=== PATIENT | female | born 1960 | race Caucasian/White ===

== ENCOUNTER → 2016-05-31 | Outpatient (REF) | payer BC ==
[~2016-05-31] MED LIST: ACET50TA PO; ATOR1TAB19 PO; CIPR500T89 PO; COLA50CA3 PO; DIOV320T PO; DOCU100C PO; HYDR12CA PO; IBUP600T26 PO; KETO10TAB PO; LEVA500T PO; LEVO750T PO; METF500T PO; TYLE325T5 PO; VALS160T PO; VALS320T PO; VALS80TA PO
[2016-05-31 13:48] LABS: FREE T4 1.1 NG/DL (0.76-1.46)
== END ==
LOC: M LAB REF 12:48
PROVIDERS: ATTEND Internal Medicine Nephrology
DX: E02 Subclinical iodine-deficiency hypothyroidism (principal)

== ENCOUNTER → 2016-06-28 | Outpatient (REF) | payer BC ==
[2016-06-28 13:13] LABS: ALBUMIN 4.1 GM/DL (3.2-5.2); ALBUMIN/GLOBULIN RATIO 1.46 (1.00-1.93); ALKALINE PHOSPHATASE 76 U/L (45-117); ALT/SGPT 18 U/L (12-78); ANION GAP 5 MEQ/L (8-16); AST/SGOT 10 U/L (15-37); BILIRUBIN,TOTAL 0.5 MG/DL (0.2-1.0); BLOOD UREA NITROGEN 24 MG/DL (7-18); CALCIUM LEVEL 9.2 MG/DL (8.5-10.1); CARBON DIOXIDE LEVEL 35 MEQ/L (21-32); CHLORIDE LEVEL 101 MEQ/L (98-107); CHOLESTEROL LEVEL 168 MG/DL (<200); CREATININE FOR GFR 0.82 MG/DL (0.55-1.02); FREE T4 1.05 NG/DL (0.76-1.46); GLOMERULAR FILTRATION RATE > 60.0 (>51); GLUCOSE, FASTING 103 MG/DL (70-105); POTASSIUM SERUM 3.9 MEQ/L (3.5-5.1); SODIUM LEVEL 141 MEQ/L (136-145); TOTAL PROTEIN 6.9 GM/DL (6.4-8.2); TRIGLYCERIDES LEVEL 63 MG/DL (<150)
== END ==
LOC: M LABDRAW1 11:36
PROVIDERS: ATTEND Emergency Medicine
DX: R53.83 Other fatigue (principal); E11.9 Type 2 diabetes mellitus without complications; I10 Essential (primary) hypertension; E78.2 Mixed hyperlipidemia; E55.9 Vitamin D deficiency, unspecified; Z00.00 Encounter for general adult medical examination without abnormal findings

== ENCOUNTER → 2016-12-20 | Outpatient (REF) | payer BC ==
[~2016-12-20] MED LIST changes: -DOCU100C PO; +DOCU100C16 PO; +LEVA1TAB2 PO; -LEVA500T PO; +METF500T13 PO
== END ==
LOC: M LABDRAW1 15:20
PROVIDERS: ATTEND Emergency Medicine
DX: E11.9 Type 2 diabetes mellitus without complications (principal); I10 Essential (primary) hypertension; E78.2 Mixed hyperlipidemia; E55.9 Vitamin D deficiency, unspecified; Z00.00 Encounter for general adult medical examination without abnormal findings

== ENCOUNTER → 2017-02-11 | Outpatient (CLI) | payer BC ==
--- NOTE | 2017-02-11 16:52 | REP ---
Clinical: Acute shortness of breath and productive cough. Comparison: 06/02/2015 . Technique: PA and lateral. Findings: The mediastinum and cardiac silhouette are normal. The lung barry are clear and without acute consolidation, effusion, or pneumothorax. The skeletal structures are intact and normal. Impression: 1. No acute cardiopulmonary process. Signed by Ludwig Rose MD 02/11/2017 04:42 P
== END ==
LOC: M ADAMS 16:28
PROVIDERS: ATTEND Physician Assistant
DX: R06.02 Shortness of breath (principal)

== ENCOUNTER → 2017-03-28 | Outpatient (REF) | payer BC ==
[2017-03-28 11:40] LABS: ALBUMIN 4.2 GM/DL (3.2-5.2); ALKALINE PHOSPHATASE 64 U/L (45-117); ALT/SGPT 17 U/L (12-78); ANION GAP 8 MEQ/L (8-16); AST/SGOT 10 U/L (7-37); BILIRUBIN,TOTAL 0.7 MG/DL (0.2-1.0); BLOOD UREA NITROGEN 24 MG/DL (7-18); CARBON DIOXIDE LEVEL 33 MEQ/L (21-32); CHLORIDE LEVEL 101 MEQ/L (98-107); CHOLESTEROL LEVEL 177 MG/DL (<200); CREATININE FOR GFR 0.82 MG/DL (0.55-1.02); GLOMERULAR FILTRATION RATE > 60.0 (>51); GLUCOSE, FASTING 102 MG/DL (70-105); POTASSIUM SERUM 3.9 MEQ/L (3.5-5.1); SODIUM LEVEL 142 MEQ/L (136-145); TRIGLYCERIDES LEVEL 141 MG/DL (<150)
[2017-03-28 11:58] LABS: ESTIMATED AVERAGE GLUCOSE 131 MG/DL (60-110)
== END ==
LOC: M LABDRAW1 09:58
DX: E11.9 Type 2 diabetes mellitus without complications (principal); I10 Essential (primary) hypertension; E78.2 Mixed hyperlipidemia; E55.9 Vitamin D deficiency, unspecified
CPT/HCPCS: 80053

== ENCOUNTER → 2017-08-16 | Outpatient (CLI) | payer BC | LOC: M RAD 11:35 | DX: N20.0 Calculus of kidney (principal); N18.2 Chronic kidney disease, stage 2 (mild); E11.22 Type 2 diabetes mellitus with diabetic chronic kidney disease; Z87.442 Personal history of urinary calculi | CPT/HCPCS: 76775 ==

== ENCOUNTER → 2017-10-17 | Outpatient (REF) | payer BC ==
[2017-10-17 13:31] LABS: ALBUMIN 4.2 GM/DL (3.2-5.2); ALBUMIN/GLOBULIN RATIO 1.35 (1.00-1.93); ALKALINE PHOSPHATASE 60 U/L (45-117); ALT/SGPT 21 U/L (12-78); ANION GAP 7 MEQ/L (8-16); AST/SGOT 9 U/L (7-37); BILIRUBIN,TOTAL 0.9 MG/DL (0.2-1.0); BLOOD UREA NITROGEN 21 MG/DL (7-18); CALCIUM LEVEL 9.6 MG/DL (8.5-10.1); CARBON DIOXIDE LEVEL 33 MEQ/L (21-32); CHLORIDE LEVEL 103 MEQ/L (98-107); CHOLESTEROL LEVEL 161 MG/DL (<200); CHOLESTEROL RISK RATIO 3.285 (<5); CREATININE FOR GFR 0.84 MG/DL (0.55-1.30); GLOMERULAR FILTRATION RATE > 60.0 (>51); GLUCOSE, FASTING 107 MG/DL (70-100); HDL CHOLESTEROL 49 MG/DL (>40); LDL CHOLESTEROL 82.4 MG/DL (<100); NON-HDL-C 112 MG/DL; POTASSIUM SERUM 4.6 MEQ/L (3.5-5.1); SODIUM LEVEL 143 MEQ/L (136-145); TOTAL PROTEIN 7.3 GM/DL (6.4-8.2); TRIGLYCERIDES LEVEL 148 MG/DL (<150)
[2017-10-17 13:39] LABS: TOTAL 25(OH) VITAMIN D 59.3 NG/ML (30.0-100.0)
[2017-10-17 14:16] LABS: ESTIMATED AVERAGE GLUCOSE 140 MG/DL (60-110); HEMOGLOBIN A1c 6.5 %
== END ==
LOC: M LABDRAW1 11:51
DX: E11.9 Type 2 diabetes mellitus without complications (principal); I10 Essential (primary) hypertension; E78.2 Mixed hyperlipidemia; E55.9 Vitamin D deficiency, unspecified

== ENCOUNTER → 2018-01-30 | Outpatient (REF) | payer BC ==
[2018-01-30 13:53] LABS: APPEARANCE, URINE HAZY (CLEAR); BACTERIA, URINE AUTO 1+ (NEGATIVE); BILIRUBIN, URINE AUTO NEGATIVE (NEGATIVE); BLOOD, URINE BLOOD NEGATIVE (NEGATIVE); COLOR, URINE YELLOW (YELLOW); GLUCOSE, URINE (UA) AUTO NEGATIVE (NEGATIVE); KETONE, URINE AUTO NEGATIVE (NEGATIVE); LEUKOCYTE ESTERASE, URINE AUTO 2+ (NEGATIVE); NITRITE, URINE AUTO NEGATIVE (NEGATIVE); PROTEIN, URINE AUTO NEGATIVE (NEGATIVE); RBC, URINE AUTO 0 /HPF (0-3); SQUAMOUS EPITHELIAL CELL UR AU 1 /HPF (0-6); UROBILINOGEN, URINE AUTO 0.2 mg/dL (0.0-2.0); WBC, URINE AUTO 8 /HPF (0-3)
== END ==
LOC: M SMT 13:21
DX: R10.9 Unspecified abdominal pain (principal)
CPT/HCPCS: 81001

== ENCOUNTER → 2018-02-04 | Outpatient (CLI) | payer BC | LOC: M RAD 08:21 | DX: R10.9 Unspecified abdominal pain (principal); N20.0 Calculus of kidney; N28.1 Cyst of kidney, acquired | CPT/HCPCS: 74176 ==

== ENCOUNTER → 2018-12-31 | Outpatient (REF) | payer BC ==
[~2018-12-31] MED LIST changes: -ACET50TA PO; +MAPA500T17 PO
[2018-12-31 13:10] LABS: ALT/SGPT 20 U/L (12-78); BILIRUBIN,TOTAL 0.6 MG/DL (0.2-1.0); BLOOD UREA NITROGEN 23 MG/DL (7-18); CALCIUM LEVEL 9.5 MG/DL (8.8-10.2); CARBON DIOXIDE LEVEL 33 MEQ/L (21-32); CHLORIDE LEVEL 101 MEQ/L (98-107); CREATININE FOR GFR 0.81 MG/DL (0.55-1.30); GLOMERULAR FILTRATION RATE > 60.0 (>45); GLUCOSE, FASTING 112 MG/DL (70-100); POTASSIUM SERUM 4.2 MEQ/L (3.5-5.1); SODIUM LEVEL 141 MEQ/L (136-145); TOTAL PROTEIN 7.1 GM/DL (6.4-8.2)
[2018-12-31 13:15] LABS: TOTAL 25(OH) VITAMIN D 33.5 NG/ML (30.0-100.0)
[2018-12-31 13:55] LABS: HEMOGLOBIN A1c 6.8 %
== END ==
LOC: M LABDRAW1 11:56
PROVIDERS: ATTEND Physician Assistant
DX: E11.9 Type 2 diabetes mellitus without complications (principal); E55.9 Vitamin D deficiency, unspecified

== ENCOUNTER → 2019-06-01 | Outpatient (REF) | payer BC, OTHER, SELFPAY ==
[~2019-06-01] MED LIST changes: -VALS320T PO; +VALS320T2 PO
[2019-06-01 19:44] LABS: BASO % 0.9 % (0.0-1.0); EOS # 0.1 10^3/uL (0.0-0.5); EOS % 3.2 % (0.0-3.0); HEMOGLOBIN 13.2 g/dl (12.0-15.5); LYMPH # 1.6 10^3/uL (1.5-5.0); LYMPH % 35.6 % (24.0-44.0); MEAN CORPUSCULAR HEMOGLOBIN 31.1 pg (27.0-33.0); MEAN CORPUSCULAR HGB CONC 33.8 g/dl (32.0-36.5); MEAN CORPUSCULAR VOLUME 91.8 fl (80.0-96.0); MONO # 0.3 10^3/uL (0.0-0.8); MONO % 7.3 % (0.0-5.0); NEUTROPHILS # 2.3 10^3/uL (1.5-8.5); NEUTROPHILS % 52.8 % (36.0-66.0); PLATELET COUNT, AUTOMATED 311 10^3/uL (150-450); RED BLOOD COUNT 4.25 10^6/uL (4.00-5.40); WHITE BLOOD COUNT 4.4 10^3/uL (4.0-10.0)
[2019-06-01 20:06] LABS: ALBUMIN 4.3 GM/DL (3.2-5.2); ALT/SGPT 24 U/L (12-78); BILIRUBIN,TOTAL 0.5 MG/DL (0.2-1.0); BLOOD UREA NITROGEN 19 MG/DL (7-18); CALCIUM LEVEL 9.6 MG/DL (8.8-10.2); CARBON DIOXIDE LEVEL 34 MEQ/L (21-32); CHLORIDE LEVEL 104 MEQ/L (98-107); CREATININE FOR GFR 0.72 MG/DL (0.55-1.30); GLOMERULAR FILTRATION RATE > 60.0 (>45); GLUCOSE, FASTING 131 MG/DL (70-100); POTASSIUM SERUM 3.7 MEQ/L (3.5-5.1); SODIUM LEVEL 142 MEQ/L (136-145); TOTAL PROTEIN 7.3 GM/DL (6.4-8.2)
[2019-06-01 20:18] LABS: HEMOGLOBIN A1c 6.9 %
== END ==
LOC: M LAB REF 18:08
PROVIDERS: ATTEND Physician Assistant
DX: I10 Essential (primary) hypertension (principal); E78.00 Pure hypercholesterolemia, unspecified; E11.9 Type 2 diabetes mellitus without complications; R53.83 Other fatigue; Z87.442 Personal history of urinary calculi

== ENCOUNTER → 2019-11-25 | Outpatient (REF) | payer OTHER ==
[2019-11-25 11:04] LABS: BASO # 0.1 10^3/uL (0.0-0.2); BASO % 1.2 % (0.0-1.0); EOS # 0.2 10^3/uL (0.0-0.5); HEMATOCRIT 40.1 % (36.0-47.0); HEMOGLOBIN 13.3 g/dl (12.0-15.5); LYMPH # 1.5 10^3/uL (1.5-5.0); LYMPH % 33.9 % (24.0-44.0); MEAN CORPUSCULAR HEMOGLOBIN 30.7 pg (27.0-33.0); MEAN CORPUSCULAR HGB CONC 33.2 g/dl (32.0-36.5); MEAN CORPUSCULAR VOLUME 92.6 fl (80.0-96.0); MONO # 0.3 10^3/uL (0.0-0.8); MONO % 6.3 % (0.0-5.0); NEUTROPHILS # 2.3 10^3/uL (1.5-8.5); NEUTROPHILS % 54.4 % (36.0-66.0); PLATELET COUNT, AUTOMATED 284 10^3/uL (150-450); RED BLOOD COUNT 4.33 10^6/uL (4.00-5.40); WHITE BLOOD COUNT 4.3 10^3/uL (4.0-10.0)
[2019-11-25 11:12] LABS: ALT/SGPT 16 U/L (12-78); BILIRUBIN,TOTAL 0.6 MG/DL (0.2-1.0); BLOOD UREA NITROGEN 19 MG/DL (7-18); CALCIUM LEVEL 9.3 MG/DL (8.8-10.2); CARBON DIOXIDE LEVEL 34 MEQ/L (21-32); CHLORIDE LEVEL 104 MEQ/L (98-107); CHOLESTEROL LEVEL 204 MG/DL (<200); CHOLESTEROL RISK RATIO 3.849 (<5); CREATININE FOR GFR 0.79 MG/DL (0.55-1.30); GLOMERULAR FILTRATION RATE > 60.0 (>45); GLUCOSE, FASTING 133 MG/DL (70-100); HDL CHOLESTEROL 53 MG/DL (>40); LDL CHOLESTEROL 124 MG/DL (<100); NON-HDL-C 151 MG/DL; POTASSIUM SERUM 4.3 MEQ/L (3.5-5.1); SODIUM LEVEL 141 MEQ/L (136-145); TOTAL PROTEIN 6.9 GM/DL (6.4-8.2); TRIGLYCERIDES LEVEL 134 MG/DL (<150)
[2019-11-25 13:07] LABS: HEMOGLOBIN A1c 6.3 %
== END ==
LOC: M LAB REF 07:55
PROVIDERS: ATTEND Nurse Practitioner Family
DX: Z87.442 Personal history of urinary calculi (principal); I10 Essential (primary) hypertension; E78.00 Pure hypercholesterolemia, unspecified; E11.9 Type 2 diabetes mellitus without complications; Z00.01 Encounter for general adult medical examination with abnormal findings; R53.83 Other fatigue

== ENCOUNTER → 2020-03-22 | Outpatient (REF) | payer OTHER ==
[2020-03-22 12:03] LABS: BASO # 0.1 10^3/uL (0.0-0.2); BASO % 1.3 % (0.0-1.0); EOS # 0.1 10^3/uL (0.0-0.5); EOS % 2.8 % (0.0-3.0); HEMATOCRIT 38.7 % (36.0-47.0); HEMOGLOBIN 12.4 g/dl (12.0-15.5); LYMPH # 1.6 10^3/uL (1.5-5.0); LYMPH % 39.6 % (24.0-44.0); MEAN CORPUSCULAR HEMOGLOBIN 29.1 pg (27.0-33.0); MEAN CORPUSCULAR VOLUME 90.8 fl (80.0-96.0); MONO # 0.3 10^3/uL (0.0-0.8); MONO % 7.3 % (0.0-5.0); NEUTROPHILS % 48.7 % (36.0-66.0); PLATELET COUNT, AUTOMATED 307 10^3/uL (150-450); RED BLOOD COUNT 4.26 10^6/uL (4.00-5.40)
[2020-03-22 12:30] LABS: ALBUMIN 4.2 GM/DL (3.2-5.2); ALT/SGPT 19 U/L (12-78); BILIRUBIN,TOTAL 0.6 MG/DL (0.2-1.0); BLOOD UREA NITROGEN 25 MG/DL (7-18); CALCIUM LEVEL 9.6 MG/DL (8.8-10.2); CARBON DIOXIDE LEVEL 34 MEQ/L (21-32); CHLORIDE LEVEL 104 MEQ/L (98-107); CHOLESTEROL LEVEL 180 MG/DL (<200); CHOLESTEROL RISK RATIO 3.157 (<5); CREATININE FOR GFR 0.86 MG/DL (0.55-1.30); GLOMERULAR FILTRATION RATE > 60.0 (>45); GLUCOSE, FASTING 121 MG/DL (70-100); HDL CHOLESTEROL 57 MG/DL (>40); LDL CHOLESTEROL 106 MG/DL (<100); NON-HDL-C 123 MG/DL; POTASSIUM SERUM 4.8 MEQ/L (3.5-5.1); SODIUM LEVEL 140 MEQ/L (136-145); TOTAL PROTEIN 7.1 GM/DL (6.4-8.2); TRIGLYCERIDES LEVEL 83 MG/DL (<150)
[2020-03-22 15:39] LABS: HEMOGLOBIN A1c 6.6 %
== END ==
LOC: M LAB REF 11:15
PROVIDERS: ATTEND Physician Assistant
DX: I10 Essential (primary) hypertension (principal); E78.00 Pure hypercholesterolemia, unspecified; E11.9 Type 2 diabetes mellitus without complications; R53.83 Other fatigue; Z87.442 Personal history of urinary calculi

== ENCOUNTER 2020-04-13 12:17 | Emergency (ER) | payer OTHER ==
[~2020-04-13] VITALS: Ht 152.4 cm; Wt 55.2 kg
--- OUTSIDE RECORDS SUMMARY | 2020-04-13 12:23 | CCD ---
Author Organization Unknown Address [address] [place] [address] Phone [phone] Care Team Providers Care Crossbar Frame Wirer Name Role Phone Mera Sharif Unavailable Unavailable Allergies Code Code System Name Reaction Severity Status Onset 2670 RxNorm Codeine Active 06/01/2019 Rocephin Active 06/01/2019 Medications Name Status Start Date Stop Date atorvastatin 10 mg tablet Active Not av ailable chlorthalidone 25 mg tablet TK 1/ T PO D IN THE MORNING Active Not availa ble famotidine 40 mg tablet Take 1 tablet every day by oral route. Active Not available metformin 500 mg tablet Active Not avai lable potassium chloride ER 10 mEq tablet,extended release Active Not available potassium chloride ER 10 mEq tablet,exte nded release(part/cryst) TK 1 T PO QD Completed 04/07/2020 simvastatin 10 mg tablet Completed 021 simvastatin 20 mg tablet Active Not wallace ilable telmisartan 80 mg tablet Active Not wallace ilable Problems Name Status Onset Date Source Type 2 Diabetes Mellitus without Complication Active History Tj Type IIa Hyperlipoproteinemia Active 2019 History Hypertensive Disorder Active 06/01/2019 History General Examination of Patient Unknown 06/01/2019 H istory Body Measurement Finding Unknown 06/01/2019 History Finding of General Energy Active 06/01/2019 Histor y Procedures Notes: uterine ablasion, kidney stone re moval, tubal ligation Results Lab Results Date Name Specimen Result Interpretation Description Value Range Status Address 03/28/2020 SARS CoV 2 RdRp Gene, QL Probe, Respiratory Spec imen Nasopharyngeal Normal Sars-cov-2 negative negative Final [facility]: [address] [facility] Past Encounters 04/07/2020 Hyperlipidemia; Epigastric Pain; Hypertensive Disorder; Type 2 Diabetes Mellitus without Complication; Mental Health Screening Assessment Bethany Pérez PA-C: [address] [facility], [address], [place] [address], Ph. 03/28/2020 Exposure to SARS-CoV-2 Bethany Pérez PA-C: [address] [place] [address], Ph. Social History Tobacco Smoking Status Never Smoker Vaccine List None recorded. Plan of Care Reminders Provider Appointments None recorded. Lab None recorded. Referral None recorded. Procedures None recorded. Surgeries None recorded. Imaging None recorded. Vitals 04/07/2020 10:50AM [facility] 20 Height 59 in 06/01/2019 Height Weight Blood Pressure 59 in 120 lbs 8 oz 116/76 mm[Hg]
--- OUTSIDE RECORDS SUMMARY | 2020-04-13 12:23 | CCD ---
Author Organization Unknown Address [address] [place] [address] Phone [phone] Care Team Providers Care Junior Sales Representative Name Role Phone Mera Sharif Unavailable Unavailable Allergies Code Code System Name Reaction Severity Status Onset 267 RxNorm Codeine Active 06/01/2019 Rocephin Active 06/01/2019 Medications Name Status Start Date Stop Date atorvastatin 10 mg tablet Active Not av ailable chlorthalidone 25 mg tablet TK 1/2 T PO D IN THE MORNING Active Not availa ble metformin 500 mg tablet Active Not avai lable potassium chloride ER 10 mEq tablet,extended release Active Not available potassium chloride ER 10 mEq tablet,exte nded release(part/cryst) TK 1 T PO QD Active Not available simvastatin 10 mg tablet Active Not wallace ilable simvastatin 20 mg tablet Active Not wallace ilable telmisartan 80 mg tablet Active Not wallace ilable Problems Name Status Onset Date Source Tj Type IIa Hyperlipoproteinemia Active 2019 History Hypertensive Disorder Active 06/01/2019 History Body Measurement Finding Active 06/01/2019 History Finding of General Energy Active 06/01/2019 Histor y Procedure by Method Active 06/01/2019 History Clinical Finding Active 06/01/2019 History Procedures Notes: uterine ablasion, kidney stone re moval, tubal ligation Results Lab Results Date Name Specimen Result Interpretation Description Value Range Status Address 03/28/2020 SARS CoV 2 RdRp Gene, QL Probe, Respiratory Spec imen Nasopharyngeal Normal Sars-cov-2 negative negative Final [facility]: [address] [facility] Past Encounters 03/28/2020 Exposure to SARS-CoV-2 Bethany Pérez PA-C: [address] [place] [phone], Ph. Social History None recorded. Vaccine List None recorded. Plan of Care Reminders Provider Appointments None recorded. Lab None recorded. Referral None recorded. Procedures None recorded. Surgeries None recorded. Imaging None recorded. Vitals Height Weight Blood Pressure 59 in 120 lbs 8 oz 116/76 mm[Hg]
--- OUTSIDE RECORDS SUMMARY | 2020-04-13 12:23 | CCD ---
Author Author [facility] Organization [facility] Address Unknown Phone Unavailable Care Team Providers Care Rehab Therapy Manager Name Role Phone Kole, Ubaldo Mera STATISTICIAN THEORETICAL Unavailable Unavailable Kole, A Mera STATISTICIAN THEORETICAL Unavailable Unavailable Kole, A Mera STATISTICIAN THEORETICAL Unavailable Unavailable Kole, A Mera STATISTICIAN THEORETICAL Unavailable Unavailable Kole, A Mera STATISTICIAN THEORETICAL Unavailable Unavailable Kole, A Mera STATISTICIAN THEORETICAL Unavailable Unavailable Kole, A Mera STATISTICIAN THEORETICAL Unavailable Unavailable Kole, A Mera STATISTICIAN THEORETICAL Unavailable Unavailable Kole, A Mera STATISTICIAN THEORETICAL Unavailable Unavailable Kole, A Mera STATISTICIAN THEORETICAL Unavailable Unavailable Kole, A Mera STATISTICIAN THEORETICAL Unavailable Unavailable Kole, A Mera STATISTICIAN THEORETICAL Unavailable Unavailable Kole, A Mera STATISTICIAN THEORETICAL Unavailable Unavailable Kole, A Mera STATISTICIAN THEORETICAL Unavailable Unavailable Kole, A Mera STATISTICIAN THEORETICAL Unavailable Unavailable Kole, A Mera STATISTICIAN THEORETICAL Unavailable Unavailable Kole, A Mera STATISTICIAN THEORETICAL Unavailable Unavailable Kole, A Mera STATISTICIAN THEORETICAL Unavailable Unavailable Kole, A Mera STATISTICIAN THEORETICAL Unavailable Unavailable Kole, A Mera STATISTICIAN THEORETICAL Unavailable Unavailable Kole, A Mera STATISTICIAN THEORETICAL Unavailable Unavailable Kole, A Mera STATISTICIAN THEORETICAL Unavailable Unavailable Kole, A Mera STATISTICIAN THEORETICAL Unavailable Unavailable Kole, A Mera STATISTICIAN THEORETICAL Unavailable Unavailable Kole, A Mera STATISTICIAN THEORETICAL Unavailable Unavailable Kole, A Mera STATISTICIAN THEORETICAL Unavailable Unavailable Kole, A Mera STATISTICIAN THEORETICAL Unavailable Unavailable Scordo, M Bethany PA Unavailable Unavailable Scordo, M Bethany PA Unavailable Unavailable Scordo, M Bethany PA Unavailable Unavailable Scordo, M Bethany PA Unavailable Unavailable Scordo, M Bethany PA Unavailable Unavailable Scordo, M Bethany PA Unavailable Unavailable Scordo, M Bethany PA Unavailable Unavailable Scordo, M Bethany PA Unavailable Unavailable Scordo, M Bethany PA Unavailable Unavailable Scordo, M Bethany PA Unavailable Unavailable Scordo, M Bethany PA Unavailable Unavailable Scordo, M Bethany PA Unavailable Unavailable Scordo, M Bethany PA Unavailable Unavailable Scordo, M Bethany PA Unavailable Unavailable Scordo, M Bethany PA Unavailable Unavailable Scordo, M Bethany PA Unavailable Unavailable Scordo, M Bethany PA Unavailable Unavailable Scordo, M Bethany PA Unavailable Unavailable Scordo, M Bethany PA Unavailable Unavailable Scordo, M Bethany PA Unavailable Unavailable Scordo, M Bethany PA Unavailable Unavailable Scordo, M Bethany PA Unavailable Unavailable Scordo, M Bethany PA Unavailable Unavailable Scordo, M Bethany PA Unavailable Unavailable Scordo, M Bethany PA Unavailable Unavailable Scordo, M Bethany PA Unavailable Unavailable Scordo, M Bethany PA Unavailable Unavailable Scordo, M Bethany PA Unavailable Unavailable Scordo, M Bethany PA Unavailable Unavailable Scordo, M Bethany PA Unavailable Unavailable Scordo, M Bethany PA Unavailable Unavailable Scordo, M Bethany PA Unavailable Unavailable Scordo, M Bethany PA Unavailable Unavailable Scordo, M Bethany PA Unavailable Unavailable Scordo, M Bethany PA Unavailable Unavailable Scordo, M Bethany PA Unavailable Unavailable Scordo, M Bethany PA Unavailable Unavailable Scordo, M Bethany PA Unavailable Unavailable Scordo, M Bethany PA Unavailable Unavailable Scordo, M Bethany PA Unavailable Unavailable RING, K SIMONA PA Unavailable Unavailable RING, K SIMONA PA Unavailable Unavailable RING, K SIMONA PA Unavailable Unavailable RING, K SIMONA PA Unavailable Unavailable RING, K SIMONA PA Unavailable Unavailable RING, K SIMONA PA Unavailable Unavailable RING, K SIMONA PA Unavailable Unavailable RING, K SIMONA PA Unavailable Unavailable RING, K SIMONA PA Unavailable Unavailable RING, K SIMONA PA Unavailable Unavailable RING, K SIMONA PA Unavailable Unavailable RING, K SIMONA PA Unavailable Unavailable RING, K SIMONA PA Unavailable Unavailable RING, K SIMONA PA Unavailable Unavailable RING, K SIMONA PA Unavailable Unavailable RING, K SIMONA PA Unavailable Unavailable RING, K SIMONA PA Unavailable Unavailable RING, K SIMONA PA Unavailable Unavailable RING, K SIMONA PA Unavailable Unavailable RING, K SIMONA PA Unavailable Unavailable Mera Sharif STATISTICIAN THEORETICAL STATISTICIAN THEORETICAL Unavailable Unavailable Re-disclosure Warning The records that you are about to access may contain information from federally-assisted alcohol or drug abuse programs. If such information is present, then the following federally mandated warning applies: This information has been disclosed to you from records protected by federal confidentiality rules (42 CFR part 2). The federal rules prohibit you from making any further disclosure of this information unless further disclosure is expressly permitted by the written consent of the person to whom it pertains or as otherwise permitted by 42 CFR part 2. A general authorization for the release of medical or other information is NOT sufficient for this purpose. The Federal rules restrict any use of the information to criminally investigate or prosecute any alcohol or drug abuse patient.The records that you are about to access may contain highly sensitive health information, the redisclosure of which is protected by Article 27-F of the [facility] Public Health law. If you continue you may have access to information: Regarding HIV / AIDS; Provided by facilities licensed or operated by the [facility] Office of Mental Health; or Provided by the [facility] Office for People With Developmental Disabilities. If such information is present, then the following [facility] mandated warning applies: This information has been disclosed to you from confidential records which are protected by state law. State law prohibits you from making any further disclosure of this information without the specific written consent of the person to whom it pertains, or as otherwise permitted by law. Any unauthorized further disclosure in violation of state law may result in a fine or alf sentence or both. A general authorization for the release of medical or other information is NOT sufficient authorization for further disc losure. Allergies and Adverse Reactions Type Description Substance Reaction Status Data Source(s ) Allergy to substance Allergy to substance Rocephin MAREK ([facility]) Allergy to substance Allergy to substance Codeine MAREK ([facility]) Allergy to substance Allergy to substance Rocephin MAREK ([facility]) Allergy to substance Allergy to substance Codeine MAREK ([facility]) Drug allergy ROCEPHIN ROCEPHIN [facility] Drug allergy CODEINE CODEINE [facility] Family History Family Member Name Family Member Gender Family Member Status Date o f Status Description Data Source(s) Unknown Unknown Problem MEDENT ([facility], [facility]) mother,father,sister #1,#2,#3 Unknown Female Problem MEDENT ([facility] Unknown Female Problem MEDENT ([facility] Female Problem MEDENT ([facility] Unknown Female Problem MEDENT ([facility] Unknown Female Problem MED[facility] ([facility] Unknown Female Problem MEDENT ([facility] Unknown Female Problem MEDENT ([facility] Unknown Female Problem MEDENT ([facility] Encounters Encounter Providers Location Date Indications Data Source(s ) Bethany Pérez PA-C: [address], [place] [address], Ph. Attender: Bethany FERNANDEZ - [facility] Medical 04/07/2020 12:00:00 AM EST MAREK ([facility]) Bethany Pérez PA-C: [address] [place] [address], Ph. Attender: Bethany MOSER [facility] Medical 03/28/2020 12:00:00 AM EST MAREK ([facility]) Bethany Pérez PA-C: [address] [place] [address], Ph. Attender: Bethany MOSER [facility] Medical 03/28/2020 12:00:00 AM EST MAREK ([facility]) Outpatient Attender: DOTTY MURRAY 12/16/2019 08:49:01 A M EDT [facility] Outpatient Attender: Mera STORM FP 12/15/2019 11:5 9:01 AM EDT [facility] Outpatient Attender: Mera STORM FP 12/11/2019 01:3 5:02 PM EDT [facility] Outpatient Attender: DOTTY STORM FP 12/11/2019 01:35:00 P M EDT [facility] Outpatient Attender: Mera STORM FP 12/11/2019 01:3 4:02 PM EDT [facility] Outpatient Attender: Mera MURRAY 12/04/2019 03:5 8:01 PM EDT [facility] Outpatient Attender: Mera MURRAY 11/25/2019 11:1 5:03 AM EDT [facility] Outpatient Attender: DOTTY MURRAY 11/24/2019 11:15:00 A M EDT [facility] Outpatient Attender: DOTTY MURRAY 11/24/2019 11:13:00 A M EDT [facility] Outpatient Attender: DOTTY MURRAY 11/11/2019 09:20:00 A M EDT [facility] Outpatient Attender: Mera STORM FP 07/28/2019 05:4 3:02 PM EDT [facility] Outpatient Attender: Mera MURRAY 06/09/2019 09:3 3:03 AM EDT [facility] Outpatient Attender: DOTTY MURRAY 06/09/2019 09:33:02 A M EDT [facility] Outpatient Attender: Mera Kole MURRAY 06/09/2019 09:3 1:03 AM EDT [facility] Outpatient Attender: DOTTY STORM FP 06/02/2019 12:00:26 A M [facility] Outpatient Attender: DOTTY STORM FP 06/01/2019 03:06:01 P [facility] Outpatient Attender: DOTTY MURRAY 06/01/2019 03:04:01 P [facility] Outpatient Attender: DOTTY MURRAY 06/01/2019 03:03:00 P [facility] Outpatient Attender: DOTTY MURRAY 06/01/2019 03:01:01 P [facility] Outpatient Attender: DOTTY STORM FP 06/01/2019 02:58:03 P [facility] Outpatient Attender: DOTTY MURRAY 06/01/2019 02:22:01 P [facility] Outpatient Attender: DOTTY STORM FP 06/01/2019 02:00:00 P [facility] Outpatient Attender: DOTTY STORM FP 05/18/2019 11:19:02 A M [facility] Outpatient Attender: DOTTY STORM FP 04/21/2019 01:03:00 P [facility] Outpatient Attender: SIMONA Ramos 03/07/2019 07:30:00 AM EST MEDENT ([facility]) Medications Medication Brand Name Start Date Product Form Dose Route Admi nistrative Instructions Pharmacy Instructions Status Indications Reaction Description Data Source(s) Prednisone 20 MG Oral Tablet Prednisone 03/07/2019 12:00:00 AM EST ORAL active MEDENT ([facility]) Doxycycline Monohydrate 100 MG Oral Capsule Doxycycline [place] hydrate 03/07/2019 12:00:00 AM EST ORAL active M EDENT ([facility]) 200 ACTUAT Albuterol 0.09 MG/ACTUAT Metered Dose Inhaler [Pr oAir] Proair HFA 03/07/2019 12:00:00 AM EST ORAL active MEDENT ([facility]) 100 mg 03/07/2019 12:00:00 AM EST capsule 20 TAKE ONE CAPSULE BY MOUTH TWICE A DAY FOR 10 DAYS TAKE ONE CAPSULE BY MOUTH TWICE A DAY FOR 10 DAYS SOLD : 03/07/2019 [facility] 20 mg 03/07/2019 12:00:00 AM EST tablet 8 TAKE ONE TABLET BY MOUTH TWICE A DAY FOR 4 DAYS TAKE ONE TABLET BY MOUTH TWICE A DAY FOR 4 DAYS SOLD: 2018 [facility] 90 mcg/actuation 03/07/2019 12:00:00 AM EST HFA aerosol inha ler 8 INHALE 2 PUFFS BY MOUTH EVERY 4 TO 6 HOURS NEEDED INHALE 2 PUFFS BY MOUTH EVERY 4 TO 6 HOURS NEEDED SOLD: 03/07/2019 [facility] potassium chloride ER 10 mEq tablet,extended release(p art/cryst) TK 1 T PO QD [id number] completed Microen capsulated potassium chloride 10 MEQ Extended Release Oral Tablet MAREK ([facility]) Simvastatin 10 MG Oral Tablet simvastatin 10 mg tablet simva statin 10 mg tablet completed simvastatin 10 MG Oral Tablet MAREK ([facility]) Insurance Providers Payer name Policy type / Coverage type Policy ID Covered alliance party ID Covered alliance party's relationship to edwards Policy Edwards Plan Information [facility] [id number] 7 [id number] [facility] P [id number] S [id number] Managed [facility] P [id number] S [id number] SELF PAY ONLY [facility] [id number] SP [id number] Managed Care [place] P UNAVAILABLE S UNAVAILABLE Medicaid S UNAVAILABLE S UNAVAILA BLE EXCELLUS BCBS B [id number] S [id number] [place] P[place] 302/307 [id number] SP [id number] BS Of [facility] Health Maintenance Organization (O) [id number] Self [id number] BCBS/Excellus Commercial [id number] Self [id number] [id number] [place]BS [place] PPO 302/307 [id number] SP [id number] ANSI-Commercial [id number] ANSI-Commercial [id number] ANSI-Commercial [id number] [place] P[place] 302/307 [id number] SP [id number] [place] PPO 302/307 [id number] SP [id number] [place]BS [place] PPO 302/307 [id number] SP [id number] BS Of [facility] Organization (O) [id number] Self [id number] [place]BS [place] PPO 302/307 [id number] SP [id number] BS Of [facility] Organization (O) [id number] Self [id number] BCBS/[employer]cell[employer] Commercial [id number] Self YN [id number] BCBS/[employer] Commercial [id number] Self YN [id number] BCBS/[employer] Commercial [id number] Self [id number] [id number] BS Of [facility] Organization (O) [id number] Self [id number] BCBS/[employer] Commercial [id number] Self YN [id number] BS Of [facility] Organization (O) [id number] Self [id number] BS Of [facility] (O) [id number] Self [id number] BS Of [facility] (O) [id number] Self [id number] BS Of [facility] Organization (O) [id number] Self [id number] BCBS [place] PPO 302/307 [id number] SP [id number] BS Of [facility] Health Maintenance Organization (HMO) Self BS Of [facility] Maintenance Organization (HMO) Self BCBS [place] PPO 302/307 [id number] SP [id number] EXCELLUS BCBS B [id number] S [id number] BS Of [facility] Maintenance Organization (HMO) Self [facility]PROVE. LEAGU P [id number] S [id number] SELF PAY UNAVAILABLE SP UNAVAILA BLE [employer] OPT OF [place] [id number] SP [id number] OTHER W.C.EMPLOYER P [id number] S [id number] BC[place] PPO 302/307 [id number] SP [id number] PL[employer]ED [employer] [id number] SP [id number] EXCELLUS BC-BS PPO 306 [id number] SP [id number] Problems, Conditions, and Diagnoses Code Display Name Description Problem Type Effective Dates Data Source(s) V13.01 Personal history of urinary calculi Personal his tory of urinary calculi 06/01/2019 02:57:01 PM [facility] 401.1 Benign hypertension Benign hypertension 020 02:57:01 PM [facility] [id number] Pure hypercholesterolemia, unspecified P ure hypercholesterolemia, unspecified 06/01/2019 02:57:01 PM [facility] [id number] Type 2 diabetes mellitus without complic ations Type 2 diabetes mellitus without complications 06/01/2019 02:57:01 PM [facility] No [facility] V70.0 Encounter for general adult medical exam ination with abnormal findings Encounter for general adult medical examination with abnormal findings 06/01/2019 02:57:01 PM [facility] 780.79 Fatigue Fatigue 06/01/2019 02:57:01 PM ES T [facility] V85.1 BMI 24.0-24.9 BMI 24.0-24.9 06/01/2019 02:57:01 PM [facility] [id number] Finding of general energy Finding of General Energy Pr oblem 06/01/2019 12:00:00 AM EST MAREK ([facility]) [id number] Body measurement finding Body Measurement Finding Prob adela 06/01/2019 12:00:00 AM EST - 04/07/2020 12:00:00 AM EST MAREK ([facility]) [id number] General examination of patient General Examination of Patient Problem 06/01/2019 12:00:00 AM EST - 04/07/2020 12:00:00 AM EST MAREK ([facility]) [id number] Hypertensive disorder Hypertensive Disorder Problem 06/01/2019 12:00:00 AM EST MAREK ([facility]) [id number] Tj type IIa hyperlipoproteinemi a Tj Type IIa Hyperlipoproteinemia Problem 06/01/2019 12:00:00 AM EST MAREK ([facility]) [id number] Type 2 diabetes mellitus without complic ation Type 2 Diabetes Mellitus without Complication Problem 06/01/2019 12:00:00 AM EST MAREK ([facility]) [id number] Clinical finding Clinical Finding Problem 06/01/2019 12 :00:00 AM EST MAREK ([facility]) [id number] Procedure by method Procedure by Method Problem 0 06/01/2019 12:00:00 AM EST MAREK ([facility]) [id number] Finding of general energy Finding of General Energy Pr oblem 06/01/2019 12:00:00 AM EST MAREK ([facility]) 193920188 Body measurement finding Body Measurement Finding Prob adela 06/01/2019 12:00:00 AM EST MAREK ([facility]) 05321876 Hypertensive disorder Hypertensive Disorder Problem 06/01/2019 12:00:00 AM EST MAREK ([facility]) 106639457 Tj type IIa hyperlipoproteinemi a Tj Type IIa Hyperlipoproteinemia Problem 06/01/2019 12:00:00 AM EST MAREK ([facility]) Results ID Date Data Source [id number] 03/28/2020 02:00:00 PM EST [facility] Name Value Range Interpretation Code Description Data Annamarie rce(s) Supporting Document(s) SARS coronavirus 2 RdRp gene [Presence] in Respiratory specimen by ANA with probe detection [facility] This lab was ordered by [facility] and reported by [facility]. ID Date Data Source [id number] 03/28/2020 01:59:00 PM EST MAREK ([facility]) Name Value Range Interpretation Code Description Data Annamarie rce(s) Supporting Document(s) sars-cov-2 negative negative normal Sars-cov-2 ABERDEEN ([facility]) ID Date Data Source [id number] 03/28/2020 01:59:00 PM EST ABERDEEN ([facility]) Name Value Range Interpretation Code Description Data Annaamrie rce(s) Supporting Document(s) sars-cov-2 negative negative normal Sars-cov-2 ABERDEEN ([facility]) ID Date Data Source [id number] 11/25/2019 10:10:44 AM EDT [facility] Labs In-House Blood TestsDate/Time Colle cted: November 25, 2019 7:55 AMTest Result Reference Range Normal ValueComments: taken from right ac, tolerated well.Jordyn Lugo, November 25, 2019 10:11 AMAssessment & Plan Orders:[id number] Vst-Est Level I [CPT-89429] 55289 - Venipuncture [CPT- 82195] Name Value Range Interpretation Code Description Data Annamarie rce(s) Supporting Document(s) ID Date Data Source [id number] 11/25/2019 07:55:00 AM EDT [facility] Name Value Range Interpretation Code Description Data Annamarie rce(s) Supporting Document(s) HCT 40.1 % 36.0-47.0 N [facility] HGB 13.3 g/dL 12.0-15.5 N [facility] Family [facility] MCH 33.2 G/DL pg 32.0-36.5 N [facility] MCHC 30.7 PG % 27.0-33.0 N [facility] PLATELETS 284 10 10*3/mm3 150-450 N [facility] Family [facility] RBC 4.33 10 10*6/mm3 4.00-5.40 N [facility] RDW 12.1 % 11.5-14.5 N [facility] WBC TOTAL 4.3 4.0-10.0 N [facility] ID Date Data Source [id number] 11/25/2019 07:55:00 AM EDT [facility] Name Value Range Interpretation Code Description Data Annamarie rce(s) Supporting Document(s) HGBA1C 6.3 % N [facility] ID Date Data Source [id number] 11/25/2019 07:55:00 AM EDT [facility] Name Value Range Interpretation Code Description Data Annamarie rce(s) Supporting Document(s) BG FASTING 133 mg/dL 70-100 H [facility] Famil y Health ID Date Data Source [id number] 06/01/2019 03:15:00 PM EST [facility] Name Value Range Interpretation Code Description Data Annamarie rce(s) Supporting Document(s) HCT 39.0 % 36.0-47.0 N [facility] HGB 13.2 g/dL 12.0-15.5 N [facility] Family [facility] MCH 33.8 G/DL pg 32.0-36.5 N [facility] MCHC 31.1 PG % 27.0-33.0 N [facility] PLATELETS 311 10 10*3/mm3 150-450 N [facility] RBC 4.25 10 10*6/mm3 4.00-5.40 N [facility] RDW 12.2 % 11.5-14.5 [facility] WBC TOTAL 4.4 4.0-10.0 [facility] ID Date Data Source [id number] 06/01/2019 03:15:00 PM [facility] Name Value Range Interpretation Code Description Data Annamarie rce(s) Supporting Document(s) BG FASTING 131 mg/dL 70-100 H [facility] Health T4, FREE 1.30 ng/dL 0.76-1.46 N [facility] TSH 2.810 microintl units/mL 0.358-3.740 N [facility] ID Date Data Source [id number] 06/01/2019 03:15:00 PM [facility] Name Value Range Interpretation Code Description Data Annamarie rce(s) Supporting Document(s) HGBA1C 6.9 % N [facility] ID Date Data Source [id number] 06/01/2019 02:04:25 PM [facility] Measurements & CalculationsHeight: 59 inches (4 ft. 11 in.) 149.86 cm Weight: 120 pounds 8 oz. 54.77 kg Body Mass Index (BMI): 24.43BMI Interpretation: Healthy WeightBody Surface Area (BSA): 1.49Weight Management Education Done (Nutrition/Physical Activity)Vital SignsTemperature: 98.3F oral Pulse Rate: 81 beats/minuteRespiratory Rate: 18 respirations/minuteBlood Pressure: 116/76 left arm sitting automaticO2 Saturation: 98% room airVital Signs performed by: Marianne Muro LPN, June 01, 2019 2:25 PMVital Signs performed by: Dangelo MOSER, June 01, 2019 2:32 PMInitial Intake Information from: patientRoom #: 8Smoking, Tobacco, Vaping or Smoke Exposure StatusSmoke Status: never smokerTobacco Use: NoDo you vape? NoPassive Smoke Exposure: NoMenstrual HistoryAge at Menopause: 46Comments: uterine ablasion at 46Healthcare HistorySince your last office visit...Have you been admitted to the hospital? NoHave you been to an emergency room (ER) or urgent care clinic? NoHave you seen another healthcare provider? Yes - urology, nephrology Have you seen a dentist? Yes [facility] [place] [facility] Health[place] general, would you say your health is? GoodPain AssessmentAre you currently having any pain which... You would like your provider to address? No Affects your activity level? NoDepres david Screening - PHQ-2Over the last two weeks, have you... Had little interest or pleasure in doing things? Not at all Been feeling down, depressed, or hopeless? Not at all PHQ-2 Score: 0Anxiety Screening - KRYSTEN-2Over the last two weeks, have you been... Feeling nervous, anxious, or on edge? Not at all Unable to stop or control worrying? Not at all KRYSTEN-2 Score: 0Infectious Disease / Travel ScreeningRecent travel for you, your family, and/or any sexual partners? NoPRAPARE Sociodemographic Characteristics Race: White Ethnicity: Not or Preferred Language: EnglishFamily and Home Address: [address] [place] [address] What is your housing situation today? I have housing Are you worried about losing your housing? NoMoney and Resources What is the highest level of school that you have finished? associate's degree Employed? Yes Your current work situation? FT Insurance: Managed Care FidelisIn the past year, have you or any family mem bers you live with been unable to get any of the following when it was really needed? Denies Insecurity: food, utilities, clothing, child care specialist, phone, legal services, otherIn the past year, have you had trouble affording costs associated with health insurance (such as deductibles, co-payments, etc.)? NoSocial and Emotional Health How often do you see or talk to people that you care about and feel close to? More than 5 times a week How stressed are you? A little bitAdditional Optional Domains In the past 3 months, have you spent more than 2 nights in a row in a alf, jail, snf center or juvenile correctional facility? No Has lack of transportation kept you from medical appointments or from getting your medications? NoIn the past year, have you had trouble getting any of the following when it was really needed (check all that apply)?noneIn the past year, have you had trouble paying the costs associated with health care or medicine (such as co-payments, costs for s ervices, prices of medicines)? NoHow confident are you that you can control and manage most of your health problems? Very confident Are you a refugee? No (Country of origin: [place]) Do you feel physically and emotionally safe where you live? Yes In the past year, have you been afraid of a partner, ex-partner? NoScreening, Brief Intervention, & Referral to Treatment (SBIRT)Pre-Screening Questions How many times have you have 4 or more drinks in a day? 2How many times have you used an illegal drug or used a prescription medication for a non- medical reason? 0Performed by: Marianne Muro LPN, June 01, 2019 2:12 PMPatient History Medical History:[id number] CholesterolSurgical History:uterine ablasionkidney stone removaltubal ligationFamily History:Heart disease (Mother)Diabetes (Father)Hypertension (Father)Myocardial infarction (ME) (Father)Social/Personal History: Chief Complaintestablish careHistory of Present Illness (HPI)59 yo female here to establish care. Pt states she has been very t ired lately but is struggling to fall asleep at night. This has been ongoing for the last month. Pt reports she traveled to [facility], has been home 1 week, unsure if this is time change or something more.Hx of Type 2 diabetes, highest A1c was 10-12, approximately 12 years ago. Last labs in 12/2018 which showed A1c 6.8. Has a dilated eye exam scheduled with her eye Dr at the end of this month. HPI performed by: Dangelo MOSER, June 01, 2019 2:32 PMTransitions of Care InboundProblem ReviewProblem List was reviewed and/or updated during this visit.Medication Reconciliation & ReviewMedication List was reviewed and/or updated during this visit, including review of any [id number] medications, herbal therapies, and/or supplements.Allergy ReviewAllergy List was reviewed and/or updated during this visit.Adult Preventive CareProvider Calculated and Reviewed all Clinical Protocols for patient today. Labs/Meds/Other Counseling-Nutrition and Physical Activity:BMI Interpretation: Healthy Weight (06/01/2019) Counseling: Done (06/01/2019) Physical Activity: Done (06/01/2019)Cancer Screening Mammogram Reviewed: Today's Comments: 2019 SMCPap Smear/HPV TestingReviewed: Today's Comments: 2018 PPColonoscopyReviewed:Today's Comments: about 9 yrs ago SMCReview of Systems General: Complains of fatigue. Denies loss of appetite, chills, dizziness, fever, headache, feeling ill, sweats. Eyes: Denies blurring of vision, double vision. Ears/Nose/Throat: Denies earache, nasal congestion, sore throat, difficulty swallowing, swollen glands. Cardiovascular: Denies chest pain, palpitations, feeling faint, elevated blood pressure. Respiratory: Denies cough, difficulty breathing, shortness of breath. Gastrointestinal: Denies nausea, vomiting, diarrhea, constipation, pain or discomfort, blood in stool, black or tarry stools. Musculoskeletal: Denies joint pain, muscle aches. Skin: Denies rash, suspicious lesions. Neurologic: Denies weakness, numbness/tingling, feeling faint. Psychiatric: Denies depression, anxiety. Endocrine: Denies cold intolerance, heat intolerance, excessive thirst, excessive urination. Physical ExamGeneral Appearance: well nourished, well hydrated, no acute distressEyes, External: conjunctivae and lids normal, EOMIExternal Ears: normal, no lesions or deformitiesHearing: grossly intactOtoscopy: canals clear, tympanic membranes intact, no fluid, light reflex intact bilaterallyExternal Nose: normal, no lesions or deformitiesNasal: mucosa, septum, and turbinates normal, nares patentLips/Teeth/Gums: no gingival inflammation, no labial lesionsPharynx: tongue normal, posterior pharynx without erythema or exudate, no thrush/aphthous ulcerNeck: supple, no masses, trachea midline, full range of motion of neckThyroid: no nodules, masses, tenderness, or enlargementRespiratory, Auscultation: clear to auscultation bilaterally; no rales, rhonchi, or wheezesRespiratory, Effort: no intercostal retractions or use of accessory musclesCardiovascular, Auscultation: S1, S2 audible; no murmur, rub, or gallop; RRRDorsalis Pedis Pulse, Right: 2+Dorsalis Pedis Pulse, Left: 2+Peripheral Circulation: no clubbing, cyanosis, edema, or varicositiesAbdomen: soft, non-tender, no masses, bowel sounds normalGait & Station: normalFoot Inspection, Right: normal examFoot Inspection, Left: normal examSkin, Inspection: no rashes, lesions, or ulcerationsMonofilament, Right: sensory intactMonofilament, Left: sensory intactOrientation: oriented to time, place, and personMood & Affect: no depression, anxiety, or agitationJudgment & Insight: intactCare Management Plan Transitions of CareInboundRate Your HealthIn general, would you say your health is? GoodAssessment & Plan Problems:Added: BMI 24.0- 24.9 (ICD-V85.1) (ZGO98-T47.24)Encounter for general adult medical examination with abnormal findings (ICD-V70.0) (OSY22-L04.01) Assessment: Instructions: Recommend annual medical appointments. Recommend routine dental and vision care. Recommend influenza vaccines annually and tetanus boosters every 10 years.Type 2 diabetes mellitus without complications (MYL14-P43.9) Assessment: Instructions: Recommend low carbohydrate diet: reduce pasta, bread, potatoes, rice. If you do eat carbohydrates, better choices are whole wheat and brown rice products. Recommend portion control and avoidance of soda and sugary foods. Increase physical activity and monitor weight. Recommend annual evaluation of eye and foot health, either here or with a specialist office. Monitor blood sugars at home and call with any concerns.Pure hypercholesterolemia, unspecified (LOW36-T33.00) Assessment: Instructions: Labs show good control of cholesterol. Refills sent.Benign hypertension (ICD- 401.1) (SKV66-J18) Assessment: Instructions: Well controlled at this time. Refills sent.Personal history of urinary calculi (ICD-V13.01) (ZVV87-T37.442) Assessment: Instructions: Continue per your specialist.Fatigue (ICD-780.79) (BSM69-N52.83) Assessment: Instructions: Labs drawn today, will call you if results are abnormal.Assessment not Saved Type 2 diabetes mellitus without complications (ACC81-S08.9): Patient Instructions/Care Plan: Encounter for general adult medical examination with abnormal findings: Recommend annual medical appointments. Recommend routine dental and vision care. Recommend influenza vaccines annually and tetanus boosters every 10 years.Type 2 diabetes mellitus without complications: Recommend low carbohydrate diet: reduce pasta, bread, potatoes, rice. If you do eat carbohydrates, better choices are whole wheat and brown rice products. Recommend portion control and avoidance of soda and sugary foods. Increase physical activity and monitor weight. Recommend annual evaluation of eye and foot health, either here or with a specialist office. Monitor blood sugars at home and call with any concerns.Pure hypercholesterolemia- unspecified: Labs show good control of cholesterol. Refills sent.Benign hypertension: Well controlled at this time. Refills sent.Personal history of urinary calculi: Continue per your specialist.Fatigue: Labs drawn today, will call you if results are abnormal. Plan developed in collaboration with patient and/or familyMedications:POTASSIUM CHLORIDE ER 10 MEQ ORAL CAPSULE EXTENDED RELEASECHLORTHALIDONE 25 MG ORAL TABLETMETFORMIN HCL 500 MG ORAL TABLETATORVASTATIN CALCIUM 10 MG ORAL TABLETTELMISARTAN 80 MG ORAL TABLETMedication Changes:New Prescription:METFORMIN HCL 500 MG ORAL TABLET-1 tab po daily Qty: 90[Tablet] Refills: 3 Method: ElectronicPOTASSIUM CHLORIDE ER 10 MEQ ORAL CAPSULE EXTENDED RELEASE-1 tab po daily Qty: 90[Capsule] Refills: 3 Method: ElectronicCHLORTHALIDONE 25 MG ORAL TABLET-1/2 tab po daily in am Qty: 45[Tablet] Refills: 3 Method: ElectronicATORVASTATIN CALCIUM 10 MG ORAL TABLET-1 tab po daily Qty: 90[Tablet] Refills: 3 Method: ElectronicTELMISARTAN 80 MG ORAL TABLET-1 tab po daily Qty: 90[Tablet] Refills: 3 Method: ElectronicAllergies:CODEINE (Critical)ROCEPHIN (Cri tical)Orders:COMP METABOLIC PANEL [CPT-46789] CBC W/DIFF [CPT-86182] HgBA1c [CPT-43758] TSH [CPT-79631] T-4 free [CPT-35653] COMP METABOLIC PANEL [CPT- 11616] CBC W/DIFF [CPT-79061] HgBA1c [CPT-35320] LIPID PANEL [CPT-81054] Preventive, New, (40-64) [CPT-23610] Follow-Up Return to clinic: in 6 months for follow upAdditional Follow-Up: diabetesClinical Visit Summary CompletedMedications:TELMISARTAN 80 MG ORAL TABLET (TELMISARTAN) 1 tab po daily #90[Tablet] x 3 Route:ORAL Entered and Authorized by: Dangelo MOSER Method used: Akiko ctronically to [facility] ([facility]) [address] [place] [address] Note to Pharmacy: Route: ORAL; RxID: [id number] CALCIUM 10 MG ORAL TABLET (ATORVASTATIN CALCIUM) 1 tab po daily #90[Tablet] x 3 Route:ORAL Entered and Authorized by: Dangelo MOSER Method used: Electronically to [facility] ([facility]) [address] [place] [address] Note to Pharmacy: Route: ORAL; RxID: [id number] 25 MG ORAL TABLET (CHLORTHALIDONE) 1/2 tab po daily in am #45[Tablet] x 3 Route:ORAL Entered and Authorized by: Dangelo MOSER Method used: Electronically to [facility] ([facility]) [address] [place] [address] Note to Pharmacy: Route: ORAL; RxID: [id number] CHLORIDE ER 10 MEQ ORAL CAPSULE EXTENDED RELEASE (POTASSIUM CHLORIDE) 1 tab po daily #90[Capsule] x 3 Route:ORAL Entered and Authorized by: Dangelo MOSER Method used: Electronically to [facility] ([facility]) [address] [place] [address] Note to Pharmacy: Route: ORAL; RxID: [id number] HCL 500 MG ORAL TABLET (METFORMIN HCL) 1 tab po daily #90[Tablet] x 3 Route:ORAL Entered and Authorized by: Dangelo MOSER Method used: Electronically to [facility]* (retail) [address] [place] [address] Note to Pharmacy: Route: ORAL; RxID: [id number]][Immunization Management]Labs In-House Blood TestsDate/Time Collected: June 01, 2019 3:14 PMTest Result Reference Range Normal ValueComments: blood draw done in office, taken from left ac, tolerated well.Jordyn Lugo, June 01, 2019 3:14 PM Name Value Range Interpretation Code Description Data Annamarie rce(s) Supporting Document(s) Procedure Vital Signs ID Date Data Source UNK Name Value Range Interpretation Code Description Data Source(s) Body height 59 [in_i] 59 [in_i] [facility]) Body weight 1928 [oz_av] 1928 [oz_av] MAREK ([facility]) Systolic blood pressure 116 mm[Hg] 116 mm[Hg] A [facility] ([facility]) Body height 59 [in_i] 59 [in_i] MAREK ([facility]) Diastolic blood pressure 76 mm[Hg] 76 mm[Hg] MAREK ([facility]) Body weight 1928 [oz_av] 1928 [oz_av] MAREK ([facility]) Systolic blood pressure 116 mm[Hg] 116 mm[Hg] A [facility]) Body height 59 [in_i] 59 [in_i] [facility]AREK ([facility]) Diastolic blood pressure 76 mm[Hg] 76 mm[Hg] ABERDEEN ([facility]) Body mass index (BMI) [Ratio] 22.5 kg/m2 22.5 k g/m2 [facility] ([facility], [facility]) Body height 60 [in_i] 60 [in_i] [facility] ([facility]) 5'0" Body weight 115.00 [lb_av] 115.00 [lb_av] MEDEN T ([facility], [facility]) Body temperature 98.2 [degF] 98.2 [degF] [facility] ([facility]) Oxygen saturation in Arterial blood by Pulse oximetry 99 % 99 % [facility] ([facility]) Respiratory rate 16 /min 16 /min [facility] ( [facility]) Heart rate 80 /min 80 /min [facility] ([facility], [facility]) Diastolic blood pressure 86 mm[Hg] 86 mm[Hg] [facility] ([facility]) Systolic blood pressure 123 mm[Hg] 123 mm[Hg] [facility] Patient Treatment Plan of Care Planned Activity Planned Date Details Description Data Source (s) Simvastatin 10 MG Oral Tablet [facility] ([facility]) potassium chloride ER 10 mEq tablet,extended release(part/cr yst) TK 1 T PO QD [facility] ([facility])
--- NOTE | 2020-04-13 12:42 | REP ---
INDICATION: CHEST PAIN. COMPARISON: 06/02/2015. TECHNIQUE: SINGLE PORTABLE AP VIEW OF THE CHEST WAS PERFORMED. FINDINGS: THERE IS NO ACUTE INFILTRATE OR PULMONARY EDEMA. LUNGS ARE CLEAR. HEART IS NOT SIGNIFICANTLY ENLARGED. MEDIASTINAL SILHOUETTE IS UNREMARKABLE. THE VISUALIZED OSSEOUS STRUCTURES ARE INTACT. IMPRESSION: NO ACUTE PULMONARY DISEASE. <Electronically signed by Sundeep Sloan > 04/13/20 [id number]
[2020-04-13 13:08] LABS: BASO # 0.1 10^3/uL (0.0-0.2); BASO % 0.9 % (0.0-1.0); EOS # 0.1 10^3/uL (0.0-0.5); EOS % 1.6 % (0.0-3.0); HEMATOCRIT 39.9 % (36.0-47.0); HEMOGLOBIN 12.8 g/dl (12.0-15.5); LYMPH # 1.8 10^3/uL (1.5-5.0); LYMPH % 33.2 % (24.0-44.0); MEAN CORPUSCULAR HEMOGLOBIN 29.6 pg (27.0-33.0); MEAN CORPUSCULAR HGB CONC 32.1 g/dl (32.0-36.5); MEAN CORPUSCULAR VOLUME 92.1 fl (80.0-96.0); MONO # 0.3 10^3/uL (0.0-0.8); MONO % 5.6 % (0.0-5.0); NEUTROPHILS # 3.2 10^3/uL (1.5-8.5); NEUTROPHILS % 58.3 % (36.0-66.0); PLATELET COUNT, AUTOMATED 318 10^3/uL (150-450); RED BLOOD COUNT 4.33 10^6/uL (4.00-5.40); WHITE BLOOD COUNT 5.6 10^3/uL (4.0-10.0)
--- OUTSIDE RECORDS SUMMARY | 2020-04-13 13:15 | CCD ---
Author Author [facility] Organization [facility] Address Unknown Phone Unavailable Care Team Providers Care Procurement Clerk Name Role Phone Kole, A Mera IRONER Unavailable Unavailable Kole, A Mera IRONER Unavailable Unavailable Kole, A Mera IRONER Unavailable Unavailable Kole, A Mera IRONER Unavailable Unavailable Kole, A Mera IRONER Unavailable Unavailable Kole, A Mera IRONER Unavailable Unavailable Kole, A Mera IRONER Unavailable Unavailable Kole, A Mera IRONER Unavailable Unavailable Kole, A Mera IRONER Unavailable Unavailable Kole, A Mera IRONER Unavailable Unavailable Koel, A Mera IRONER Unavailable Unavailable Kole, A Mera IRONER Unavailable Unavailable Kole, A Mera IRONER Unavailable Unavailable Kole, A Mera IRONER Unavailable Unavailable Kole, A Mera IRONER Unavailable Unavailable Kole, A Mera IRONER Unavailable Unavailable Kole, A Mera IRONER Unavailable Unavailable Kole, A Mera IRONER Unavailable Unavailable Kole, A Mera IRONER Unavailable Unavailable Kole, A Mera IRONER Unavailable Unavailable Kole, A Mera IRONER Unavailable Unavailable Kole, A Mera IRONER Unavailable Unavailable Kole, A Mera IRONER Unavailable Unavailable Kole, A Mera IRONER Unavailable Unavailable Kole, A Mera IRONER Unavailable Unavailable Kole, A Mera IRONER Unavailable Unavailable Kole, A Mera IRONER Unavailable Unavailable Scordo, M Bethany PA Unavailable [...] K SIMONA PA Unavailable Unavailable Mera Sharif IRONER IRONER Unavailable Unavailable Re-disclosure Warning The records that [...] is protected by Article 27-F of the [facility] Public Health law. If you continue you may have access to information: Regarding HIV / AIDS; Provided by facilities licensed or operated by the [facility] Office of Mental Health; or Provided by the [facility] Office for People With Developmental Disabilities. If such information is present, then the following [facility] mandated warning applies: This information has been [...] law may result in a fine or fci sentence or both. A general authorization for the release of medical or other information is NOT sufficient authorization for further disc losure. Allergies and Adverse Reactions Type Description Substance Reaction Status Data Source(s ) Allergy to substance Allergy to substance Rocephin MAREK ([facility]) Allergy to substance Allergy to substance Codeine MAREK ([facility]) Allergy to substance Allergy to substance Rocephin MAREK ([facility]) Allergy to substance Allergy to substance Codeine MANASSAS ([facility]) Drug allergy ROCEPHIN ROCEPHIN [facility] y Family Health Drug allergy CODEINE CODEINE [facility] y [facility] Family History Family Member Name Family Member Gender Family Member Status Date o f Status Description Data Source(s) Unknown Unknown Problem MEDENT ([facility]) mother,father,sister #1,#2,#3 Unknown Female Problem MEDENT ([facility] [...] Data Source(s ) Bethany Pérez PA-C: [address] [facility], [facility] [address], [place] [address], Ph. Attender: Bethany MOSER [place] - [facility] Medical 04/07/2020 12:00:00 AM EST MAREK ([facility]) Bethany Pérez PA-C: [address] , [place] [address], Ph. Attender: Bethany MOSER [facility] Medical 03/28/2020 12:00:00 AM EST MAREK ([facility]) Bethany Pérez PA-C: [address] , [place] [address], Ph. Attender: Bethany MOSER [facility] Medical 03/28/2020 12:00:00 AM EST MAREK ([facility]) Outpatient Attender: DOTTY MURRAY 12/16/2019 08:49:01 A M EDT [facility] Outpatient Attender: Mera MURRAY 12/15/2019 11:5 9:01 AM EDT [facility] Outpatient Attender: Mera STORM FP 12/11/2019 01:3 5:02 PM EDT [facility] Outpatient Attender: DOTTY MURRAY 12/11/2019 01:35:00 P M EDT [facility] Outpatient Attender: Mera STORM FP 12/11/2019 01:3 4:02 PM EDT [facility] Outpatient Attender: Mera MURRAY 12/04/2019 03:5 8:01 PM EDT [facility] Outpatient Attender: Mera MURRAY 11/25/2019 11:1 5:03 AM EDT [facility] Outpatient Attender: DOTTY MURRAY 11/24/2019 11:15:00 A M EDT [facility] Outpatient Attender: DOTTY MURRAY 11/24/2019 11:13:00 A M EDT [facility] Outpatient Attender: DOTTY MURRAY 11/11/2019 09:20:00 A M EDT [facility] Outpatient Attender: Mera MURRAY 07/28/2019 05:4 3:02 PM EDT [facility] Outpatient Attender: Mera STORM FP 06/09/2019 09:3 3:03 AM EDT [facility] Outpatient Attender: DOTTY STORM FP 06/09/2019 09:33:[facility] Mera Kole ST[facility] FP 06/09/2019 09:3 1:03 AM EDT [facility] Outpatient Attender: DOTTY STORM FP 06/02/2019 12:00:[address] [facility] Outpatient Attender: DOTTY STORM FP 06/01/2019 03:06:[address] [facility] Outpatient Attender: DOTTY STORM FP 06/01/2019 03:04:[address] [facility] Outpatient Attender: DOTTY STORM FP 06/01/2019 03:03:[address] [facility] Outpatient Attender: DOTTY STORM FP 06/01/2019 03:01:[address] [facility] Outpatient Attender: DOTTY STORM FP 06/01/2019 02:58:[address] [facility] Outpatient Attender: DOTTY STORM FP 06/01/2019 02:22:[address] [facility] Outpatient Attender: DOTTY STORM FP 06/01/2019 02:00:[address] [facility] Outpatient Attender: DOTTY STORM FP 05/18/2019 11:19:[address] [facility] Outpatient Attender: DOTTY STORM FP 04/21/2019 01:03:[address] [facility] Outpatient Attender: SIMONA Ramos 03/07/2019 07:30:00 AM EST MEDENT ([facility]) Medications Medication Brand Name Start Date Product Form Dose Route Admi nistrative Instructions Pharmacy Instructions Status Indications Reaction Description Data Source(s) Prednisone 20 MG Oral Tablet Prednisone 03/07/2019 12:00:00 AM EST ORAL active MEDENT ([facility]) Doxycycline Monohydrate 100 MG Oral Capsule Doxycycline [place] hydrate 03/07/2019 12:00:00 AM EST ORAL active M EDENT ([facility]) 200 ACTUAT Albuterol 0.09 MG/ACTUAT Metered Dose Inhaler [Pr oAir] Proair HFA 03/07/2019 12:00:00 AM EST ORAL active MEDENT ([facility]) 100 mg 03/07/2019 12:00:00 AM EST capsule [...] release(p art/cryst) TK 1 T PO QD 433322 completed Microen capsulated potassium chloride 10 MEQ Extended Release Oral Tablet MAREK ([facility]) Simvastatin 10 MG Oral Tablet simvastatin 10 mg tablet simva statin 10 mg tablet completed simvastatin 10 MG Oral Tablet MAREK ([facility]) Insurance Providers Payer name Policy type / Coverage type Policy ID Covered libertarian ID Covered libertarian's relationship to edwards Policy Edwards Plan Information [facility] [id number] SP [id number] [facility] P [id number] S [id number] Managed Care [place] P [id number] S [id number] SELF PAY ONLY BCBS [facility] [id number] SP [id number] Managed Care [place] P UNAVAILABLE S UNAVAILABLE Medicaid S UNAVAILABLE S UNAVAILA BLE EXCELLUS BCBS B [id number] S [id number] [place]BS [place] PPO 302/307 [id number] SP [id number] BS Of [facility] Health Maintenance Organization ([facility] [place]) [id number] Self [id number] BCBS/Excellus Commercial [id number] Self [id number] BCBS [place] PPO 302/307 [id number] SP [id number] ANSI-Commercial [id number] ANSI-Commercial [id number] ANSI-Commercial [id number] BCBS [place] PPO 302/307 [id number] SP [id number] BCBS [place] PPO 302/307 [id number] SP [id number] BCBS [place] PPO 302/307 [id number] SP [id number] BS Of [facility] Organization (O) [id number] Self [id number] BCBS [place] PPO 302/307 [id number] SP [id number] BS Of [facility] Organization (O) [id number] Self [id number] BCBS/[employer] [id number] Self YN [id number] BCBS/[employer] [id number] Self YN [id number] BCBS/[employer] [id number] Self YN [id number] BS Of [facility] Organization (O) [id number] Self [id number] BCBS/[employer] [id number] Self YN [id number] BS Of [facility] (O) [id number] Self [id number] BS Of [facility] (O) [id number] Self [id number] BS Of [facility] Organization (O) [id number] Self [id number] BS Of [facility] (HMO) [id number] Self [id number] BCBS [place] PPO 302/307 [id number] SP [id number] BS Of [facility] (HMO) Self BS Of [facility] Health [facility] Organization (HMO) Self BCBS [place] PPO 302/307 [id number] SP [id number] EXCELLUS BCBS B [id number] S [id number] BS Of [facility] Health Maintenance Organization (HMO) Self [facility]. [facility] P [id number] S [id number] SELF PAY UNAVAILABLE SP UNAVAILA BLE TODAY'S OPT OF [place] [id number] SP [id number] OTHER W.C.EMPLOYER P [id number] S [id number] BCBS [place] PPO 302/307 [id number] SP [id number] PL[employer]ED [employer] [id number] SP [id number] EXCELLUS BC-BS PPO 306 [id number] SP [id number] Problems, Conditions, and Diagnoses Code Display Name Description Problem Type Effective Dates Data Source(s) V13.01 Personal history of urinary calculi Personal his tory of urinary calculi 06/01/2019 02:57:01 PM [facility] 401.1 Benign hypertension Benign hypertension 020 02:57:01 PM [facility] [id number] Pure hypercholesterolemia, unspecified P ure hypercholesterolemia, unspecified 06/01/2019 02:57:01 PM [facility] [id number] Type 2 diabetes mellitus without complic ations Type 2 diabetes mellitus without complications 06/01/2019 02:57:01 PM [facility] V70.0 Encounter for general adult medical exam ination with abnormal findings Encounter for general adult medical examination with abnormal findings 06/01/2019 02:57:01 PM [facility] 780.79 Fatigue Fatigue 06/01/2019 02:57:01 PM ES [facility] V85.1 BMI 24.0-24.9 BMI 24.0-24.9 06/01/2019 02:57:01 PM EST [facility] [id number] Finding of general energy Finding of General Energy Pr oblem 06/01/2019 12:00:00 AM EST MAREK ([facility]) [id number] Body measurement finding Body Measurement Finding Prob adela 06/01/2019 12:00:00 AM EST - 04/07/2020 12:00:00 AM EST MAREK ([facility]) [id number] General examination of patient General Examination of Patient Problem 06/01/2019 12:00:00 AM EST - 04/07/2020 12:00:00 AM EST MAREK ([facility]) [id number] Hypertensive disorder Hypertensive Disorder Problem 06/01/2019 12:00:00 AM EST MAREK ([facility]) [id number] Tj type IIa hyperlipoproteinemi a Tj Type IIa Hyperlipoproteinemia Problem 06/01/2019 12:00:00 AM EST MAREK ([facility]) [id number] Type 2 diabetes mellitus without complic ation Type 2 Diabetes Mellitus without Complication Problem 06/01/2019 12:00:00 AM EST MAREK ([facility]) [id number] Clinical finding Clinical Finding Problem 06/01/2019 12 :00:00 AM EST MAREK ([facility]) [id number] Procedure by method Procedure by Method Problem 0 06/01/2019 12:00:00 AM EST MAREK ([facility]) [id number] Finding of general energy Finding of General Energy Pr oblem 06/01/2019 12:00:00 AM EST MAREK ([facility]) 828063749 Body measurement finding Body Measurement Finding Prob adela 06/01/2019 12:00:00 AM EST MAREK ([facility]) 17132737 Hypertensive disorder Hypertensive Disorder Problem 06/01/2019 12:00:00 AM EST MAREK ([facility]) 916823455 Tj type IIa hyperlipoproteinemi a Tj Type IIa Hyperlipoproteinemia Problem 06/01/2019 12:00:00 AM EST MAREK ([facility]) Results ID Date Data Source [id number] 03/28/2020 02:00:00 PM EST [facility] Name Value Range Interpretation Code Description Data Annamarie rce(s) Supporting Document(s) SARS coronavirus 2 RdRp gene [Presence] in Respiratory specimen by ANA with probe detection [facility] This lab was ordered by [facility] and reported by [facility]. ID Date Data Source [id number] 03/28/2020 01:59:00 PM EST MAREK ([facility]) Name Value Range Interpretation Code Description Data Annamarie rce(s) Supporting Document(s) sars-cov-2 negative negative normal Sars-cov-2 MANASSAS ([facility]) ID Date Data Source [id number] 03/28/2020 01:59:00 PM EST MAREK ([facility]) Name Value Range Interpretation Code Description Data Annamarie rce(s) Supporting Document(s) sars-cov-2 negative negative normal Sars-cov-2 MANASSAS ([facility]) ID Date Data Source [id number] 11/25/2019 10:10:44 AM EDT [facility] Labs In-House Blood TestsDate/Time Colle cted: November 25, 2019 7:55 AMTest Result Reference Range Normal ValueComments: taken from right ac, tolerated well.Jordyn Brittney, November 25, 2019 10:11 AMAssessment & Plan Orders:[id number] Vst-Est Level I [CPT-36164] 46794 - Venipuncture [CPT- 96926] Name Value Range Interpretation Code Description Data Annamarie rce(s) Supporting Document(s) ID Date Data Source [id number] 11/25/2019 07:55:00 AM EDT [facility] Name Value Range Interpretation Code Description Data Annamarie rce(s) Supporting Document(s) HCT 40.1 % 36.0-47.0 N [facility] HGB 13.3 g/dL 12.0-15.5 N [facility] MCH 33.2 G/DL pg 32.0-36.5 N [facility] MCHC 30.7 PG % 27.0-33.0 N [facility] PLATELETS 284 10 10*3/mm3 150-450 N [facility] RBC 4.33 10 10*6/mm3 4.00-5.40 N [facility] RDW 12.1 % 11.5-14.5 [facility] WBC TOTAL 4.3 4.0-10.0 N [facility] ID Date Data Source [id number] 11/25/2019 07:55:00 AM EDT [facility] Name Value Range Interpretation Code Description Data Annamarie rce(s) Supporting Document(s) HGBA1C 6.3 % N [facility] ID Date Data Source [id number] 11/25/2019 07:55:00 AM EDT [facility] Name Value Range Interpretation Code Description Data Annmaarie rce(s) Supporting Document(s) BG FASTING 133 mg/dL 70-100 H [facility] ID Date Data Source [id number] 06/01/2019 03:15:00 PM EST [facility] Name Value Range Interpretation Code Description Data Annamarie rce(s) Supporting Document(s) HCT 39.0 % 36.0-47.0 N [facility] HGB 13.2 g/dL 12.0-15.5 N [facility] MCH 33.8 G/DL pg 32.0-36.5 N [facility] MCHC 31.1 PG % 27.0-33.0 N [facility] PLATELETS 311 10 10*3/mm3 150-450 N [facility] RBC 4.25 10 10*6/mm3 4.00-5.40 N [facility] RDW 12.2 % 11.5-14.5 N [facility] WBC TOTAL 4.4 4.0-10.0 N [facility] ID Date Data Source [id number] 06/01/2019 03:15:00 PM [facility] Name Value Range Interpretation Code Description Data Annamarie rce(s) Supporting Document(s) BG FASTING 131 mg/dL 70-100 H [facility] T4, FREE 1.30 ng/dL 0.76-1.46 N [facility] TSH 2.810 microintl units/mL 0.358-3.740 N [facility] ID Date Data Source [id number] 06/01/2019 03:15:00 PM [facility] Name Value Range Interpretation Code Description Data Annamarie rce(s) Supporting Document(s) HGBA1C 6.9 % N [facility] ID Date Data Source [id number] 06/01/2019 02:04:25 PM [facility] Measurements & CalculationsHeight: 59 inches (4 ft. [...] or Preferred Language: EnglishFamily and Home Address: [address] [place] [address] What is your housing situation today? I [...] really needed? Denies Insecurity: food, utilities, clothing, childcare provider, phone, legal services, otherIn the past year, [...] 2 nights in a row in a fci, long term, shelter center or juvenile correctional facility? No Has [...] June 01, 2019 2:12 PMPatient History Medical History:[id number] CholesterolSurgical History:uterine ablasionkidney stone removaltubal ligationFamily History:Heart disease (Mother)Diabetes (Father)Hypertension (Father)Myocardial infarction (MD) (Father)Social/Personal History: Chief Complaintestablish careHistory of Present Illness (HPI)59 yo female here to establish care. Pt states she has been very t ired lately but is struggling to fall asleep at night. This has been ongoing for the last month. Pt reports she traveled [facility], has been home 1 week, unsure if [...] during this visit, including review of any gkfc-ucs-jjyneus medications, herbal therapies, and/or supplements.Allergy ReviewAllergy List [...] & Plan Problems:Added: BMI 24.0- 24.9 (ICD-V85.1) (PUE80-N29.24)Encounter for general adult medical examination with abnormal findings (ICD-V70.0) (DME34-Z58.01) Assessment: Instructions: Recommend annual medical appointments. Recommend routine dental and vision care. Recommend influenza vaccines annually and tetanus boosters every 10 years.Type 2 diabetes mellitus without complications (OBC94-Z59.9) Assessment: Instructions: Recommend low carbohydrate diet: reduce [...] and call with any concerns.Pure hypercholesterolemia, unspecified (QUA99-Y80.00) Assessment: Instructions: Labs show good control of cholesterol. Refills sent.Benign hypertension (ICD- 401.1) (FXR79-K88) Assessment: Instructions: Well controlled at this time. Refills sent.Personal history of urinary calculi (ICD-V13.01) (SAU49-N42.442) Assessment: Instructions: Continue per your specialist.Fatigue (ICD-780.79) (SXZ76-L66.83) Assessment: Instructions: Labs drawn today, will call you if results are abnormal.Assessment not Saved Type 2 diabetes mellitus without complications (FFC13-F15.9): Patient Instructions/Care Plan: Encounter for general adult [...] Method: ElectronicAllergies:CODEINE (Critical)ROCEPHIN (Cri tical)Orders:COMP METABOLIC PANEL [CPT-41970] CBC W/DIFF [CPT-96991] HgBA1c [CPT-14564] TSH [CPT-32707] T-4 free [CPT-86874] COMP METABOLIC PANEL [CPT- 60133] CBC W/DIFF [CPT-73872] HgBA1c [CPT-23765] LIPID PANEL [CPT-56838] Preventive, New, (40-64) [CPT-22947] Follow-Up Return to clinic: in 6 months for follow upAdditional Follow-Up: diabetesClinical Visit Summary CompletedMedications:TELMISARTAN 80 MG ORAL TABLET (TELMISARTAN) 1 tab po daily #90[Tablet] x 3 Route:ORAL Entered and Authorized by: Dangelo MOSER Method used: Akiko ctronically to [facility] (retail) [address] [place] [address] Note to Pharmacy: Route: ORAL; RxID: [id number] CALCIUM 10 MG ORAL TABLET (ATORVASTATIN CALCIUM) 1 tab po daily #90[Tablet] x 3 Route:ORAL Entered and Authorized by: Dangelo MOSER Method used: Electronically to [facility] (retail) [address] [place] [address] Note to Pharmacy: Route: ORAL; RxID: [id number] 25 MG ORAL TABLET (CHLORTHALIDONE) 1/2 tab po daily in am #45[Tablet] x 3 Route:ORAL Entered and Authorized by: Dangelo MOSER Method used: Electronically to [facility] (retail) [address] [place] [address] Note to Pharmacy: Route: ORAL; RxID: [id number] CHLORIDE ER 10 MEQ ORAL CAPSULE EXTENDED RELEASE (POTASSIUM CHLORIDE) 1 tab po daily #90[Capsule] x 3 Route:ORAL Entered and Authorized by: Dangelo MOSER Method used: Electronically to [facility] (retail) [address] [place] [address] Note to Pharmacy: Route: ORAL; RxID: [id number] HCL 500 MG ORAL TABLET (METFORMIN HCL) 1 tab po daily #90[Tablet] x 3 Route:ORAL Entered and Authorized by: Dangelo MOSER Method [facility] ([facility] [address] [place] [address] Note to Pharmacy: Route: ORAL; RxID: [id number]][Immunization Management]Labs In-House Blood TestsDate/Time Collected: June 01, [...] Source(s) Body height 59 [in_i] 59 [in_i] MAREK ([facility]) Body weight 1928 [oz_av] 1928 [oz_av] MAREK ([facility]) Systolic blood pressure 116 mm[Hg] 116 mm[Hg] A THENA ([facility]) Body height 59 [in_i] 59 [in_i] MAREK ([facility]) Diastolic blood pressure 76 mm[Hg] 76 mm[Hg] MAREK ([facility]) Body weight 1928 [oz_av] 1928 [oz_av] MAREK ([facility]) Systolic blood pressure 116 mm[Hg] 116 mm[Hg] A THENA ([facility]) Body height 59 [in_i] 59 [in_i] MAREK ([facility]) Diastolic blood pressure 76 mm[Hg] 76 mm[Hg] MAREK ([facility]) Body mass index (BMI) [Ratio] 22.5 kg/m2 22.5 k g/m2 [facility]) Body height 60 [in_i] 60 [in_i] [facility] ([facility], [facility]) 5'0" Body weight 115.00 [lb_av] 115.00 [lb_av] MEDEN T ([facility], [facility]) Body temperature 98.2 [degF] 98.2 [degF] [facility] ([facility], [facility]) Oxygen saturation in Arterial blood by Pulse oximetry 99 % 99 % [facility] ([facility], [facility]) Respiratory rate 16 /min 16 /min [facility] ( [facility], [facility]) Heart rate 80 /min 80 /min [facility] ([facility], [facility]) Diastolic blood pressure 86 mm[Hg] 86 mm[Hg] [facility] ([facility], [facility]) Systolic blood pressure 123 mm[Hg] 123 mm[Hg] M [facility] [facility] ([facility], [facility]) Patient Treatment Plan of Care Planned Activity Planned Date Details Description Data Source (s) Simvastatin 10 MG Oral Tablet [facility] ([facility]) potassium chloride ER 10 mEq tablet,extended release(part/cr yst) TK 1 T PO QD [facility] ([facility])
[2020-04-13 13:36] LABS: ALBUMIN 4.2 GM/DL (3.2-5.2); ALT/SGPT 24 U/L (12-78); BILIRUBIN,DIRECT < 0.1 MG/DL (0.0-0.2); BILIRUBIN,TOTAL 0.5 MG/DL (0.2-1.0); BLOOD UREA NITROGEN 18 MG/DL (7-18); CALCIUM LEVEL 9.2 MG/DL (8.8-10.2); CARBON DIOXIDE LEVEL 30 MEQ/L (21-32); CHLORIDE LEVEL 103 MEQ/L (98-107); CK-MB VALUE MASS < 1.0 NG/ML (<3.6); CPK CREATINE PHOSPHOKINASE 62 U/L (26-192); GLOMERULAR FILTRATION RATE > 60.0 (>45); GLUCOSE, FASTING 126 MG/DL (70-100); LIPASE 161 U/L (73-393); MB/CK RELATIVE INDEX 1.61 (< OR =4); POTASSIUM SERUM 3.8 MEQ/L (3.5-5.1); SODIUM LEVEL 141 MEQ/L (136-145); TOTAL PROTEIN 7.2 GM/DL (6.4-8.2); TROPONIN I < 0.02 NG/ML (< 0.10)
[2020-04-13 14:08] LABS: RSV AMPLIFICATION NEGATIVE (NEGATIVE)
[2020-04-13 15:16] VITALS: BP 130/80
--- NOTE | 2020-04-14 00:41 | ECGEPIP ---
[facility] - ED Test Date: 2020-04-13 Pat Name: DARIO JONES Department: Room: - Gender: Female Java Lead Engineer: BHARATRIOS : 1960 Requested By: ROSIBEL Zamora Order Number: [id number] Reading MD: Orlando Tadeo Measurements Intervals Stanley Rate: 66 P: 51 IN: 158 QRS: 20 QRSD: 84 T: 10 QT: 409 QTc: 428 Interpretive Statements SINUS RHYTHM NONSPECIFIC ST & T-WAVE ABNORMALITY SIMILAR TO 05/18/15 Electronically Signed on 04-14-2020 0:41:23 EST by Orlando Tadeo
== END 2020-04-13 15:56 | disposition home or self-care (01) ==
LOC: M ED 12:17
DX: B34.9 Viral infection, unspecified (principal); I11.0 Hypertensive heart disease with heart failure; Z88.6 Allergy status to analgesic agent; Z88.8 Allergy status to other drugs, medicaments and biological substances

== ENCOUNTER → 2020-09-02 | Outpatient (CLI) | payer OTHER ==
--- NOTE | 2020-09-02 13:35 | REP ---
INDICATION: PELVIC / PERINEAL PAIN COMPARISON: None. TECHNIQUE: Transabdominal pelvic ultrasound followed by transvaginal examination for better evaluation of the endometrium and adnexa. FINDINGS: Bladder is unremarkable and measures 9.4 x 9.0 x 7.4 cm. Normal anteverted uterus measures 7.1 x 3.0 x 4.0 cm. The endometrial complex measures 4.0 mm thickness. No discrete uterine or endometrial abnormalities are appreciated. The ovaries are not definitively identified and may be secondary to excessive bowel gas within the pelvis. There is a small 7 mm benign-appearing cystic structure in the right adnexa which may reflect a right ovary. No obvious pelvic free fluid or significant mass lesion otherwise appreciated. IMPRESSION: 1. Normal appearance to the uterus. 2. Ovaries not definitively identified. 3. Small sub cm benign appearing cystic structure in the right adnexa is nonspecific. If the patient remains symptomatic, follow-up pelvic ultrasound in 4-6 weeks may be warranted for further investigation. <Electronically signed by Ludwig Rose > 09/02/20 [id number]
== END ==
LOC: M RAD 12:32
PROVIDERS: ATTEND Obstetrics & Gynecology
DX: R10.2 Pelvic and perineal pain (principal)

== ENCOUNTER → 2020-12-29 | Outpatient (CLI) | payer OTHER ==
[~2020-12-29] MED LIST changes: +ALBU8.5H INH; +CHLO125TA PO; +FAMO40TA3 PO; +K-TA10TA PO; +SIMV20TA22 PO; +TELM1TAB35 PO
== END ==
LOC: M LABSMTC 10:01
PROVIDERS: ATTEND Anesthesiology
DX: Z01.812 Encounter for preprocedural laboratory examination (principal)

== ENCOUNTER 2021-01-03 09:03 | Day surgery (SDC) | payer OTHER ==
[~2021-01-03] VITALS: Ht 152.4 cm; Wt 52.6 kg
[~2021-01-03 09:03] MED LIST changes: +NS 1,000 ML IV ONE
[2021-01-03] MEDS ORDERED: LIDOCAINE 2% 100MG/5ML SDV (FOR ANES.) As Ordered ONE (09:13)
[2021-01-03] MEDS ORDERED: fentaNYL 100 MCG/2 ML INJECTION (J3010) As Ordered ONE (09:13)
[2021-01-03] MEDS ORDERED: propofoL 200 MG/20 ML VIAL As Ordered ONE (09:13)
[2021-01-03] MEDS ORDERED: ePHEDrine SULFATE 25 MG/5 ML(5MG/ML) SYRINGE As Ordered ONE (10:07)
--- NOTE | 2021-01-03 10:34 | ROOR ---
Patient Name: Megha Chou Procedure Date: 01/03/2021 9:41 AM Date of : 1960 Age: 60 Room: [facility] Gender: Female Note Status: Finalized Procedure: Upper GI endoscopy Indications: Heartburn Providers: Elie Shankar MD Referring MD: Santos Gupta Requesting Provider: Medicines: Monitored Anesthesia Care Complications: No immediate complications. Procedure: Pre-Anesthesia Assessment: - Prior to the procedure, a History and Physical was performed, and patient medications and allergies were reviewed. The patient is competent. The risks and benefits of the procedure and the sedation options and risks were discussed with the patient. All questions were answered and informed consent was obtained. Patient identification and proposed procedure were verified by the physician, the nurse and the supervisor elementary education in the endoscopy suite. Mental Status Examination: alert and oriented. Airway Examination: normal oropharyngeal airway and neck mobility. Respiratory Examination: clear to auscultation. CV Examination: normal. Prophylactic Antibiotics: The patient does not require prophylactic antibiotics. Prior Anticoagulants: The patient has taken no previous anticoagulant or antiplatelet agents. ASA Grade Assessment: III - A patient with severe systemic disease. After reviewing the risks and benefits, the patient was deemed in satisfactory condition to undergo the procedure. The anesthesia plan was to use monitored anesthesia care (MAC). Immediately prior to administration of medications, the patient was re-assessed for adequacy to receive sedatives. The heart rate, respiratory rate, oxygen saturations, blood pressure, adequacy of pulmonary ventilation, and response to care were monitored throughout the procedure. The physical status of the patient was re-assessed after the procedure. The Endoscope was introduced through the mouth, and advanced to the second part of duodenum. The upper GI endoscopy was accomplished without difficulty. The patient tolerated the procedure well. Findings: The Z-line was regular and was found 36 cm from the incisors. The entire examined stomach was normal. The first portion of the duodenum and second portion of the duodenum were normal. There is no endoscopic evidence of hiatal hernia in the gastroesophageal junction. Impression: - Z-line regular, 36 cm from the incisors. - Normal stomach. - Normal first portion of the duodenum and second portion of the duodenum. - No specimens collected. Recommendation: - Discharge patient to home (ambulatory). - Continue present medications. - stay upright for a few hours after dinner time, elevate head with pillows. small meals at night. Procedure Code(s): --- Professional --- 36703, Esophagogastroduodenoscopy, flexible, transoral; diagnostic, including collection of specimen(s) by brushing or washing, when performed (separate procedure) Diagnosis Code(s): --- Professional --- R12, Heartburn CPT copyright 2019 [employer]. All rights reserved. The codes documented in this report are preliminary and upon fountain worker review may be revised to meet current compliance requirements. Elie Shankar MD Elie Shankar MD 01/03/2021 10:33:52 AM Electronically signed by Elie Shankar MD Number of Addenda: 0 Note Initiated On: 01/03/2021 9:41 AM Estimated Blood Loss: Estimated blood loss: none.
--- NOTE | 2021-01-03 10:37 | ROOR ---
Patient Name: Megha Chou Procedure Date: 01/03/2021 9:43 AM Date of : 1960 Age: 60 Room: [facility] Gender: Female Note Status: Finalized Procedure: Colonoscopy Indications: Screening for colorectal malignant neoplasm Providers: Elie Shankar MD Referring MD: Santos Gupta Requesting Provider: Medicines: Monitored Anesthesia Care Complications: No immediate complications. Procedure: Pre-Anesthesia Assessment: - Prior to the procedure, a History and Physical was performed, and patient medications and allergies were reviewed. The patient is competent. The risks and benefits of the procedure and the sedation options and risks were discussed with the patient. All questions were answered and informed consent was obtained. Patient identification and proposed procedure were verified by the physician, the nurse and the caustic strength inspector in the endoscopy suite. Mental Status Examination: alert and oriented. Airway Examination: normal oropharyngeal airway and neck mobility. Respiratory Examination: clear to auscultation. CV Examination: normal. Prophylactic Antibiotics: The patient does not require prophylactic antibiotics. Prior Anticoagulants: The patient has taken no previous anticoagulant or antiplatelet agents. ASA Grade Assessment: III - A patient with severe systemic disease. After reviewing the risks and benefits, the patient was deemed in satisfactory condition to undergo the procedure. The anesthesia plan was to use monitored anesthesia care (MAC). Immediately prior to administration of medications, the patient was re-assessed for adequacy to receive sedatives. The heart rate, respiratory rate, oxygen saturations, blood pressure, adequacy of pulmonary ventilation, and response to care were monitored throughout the procedure. The physical status of the patient was re-assessed after the procedure. The Colonoscope was introduced through the anus and advanced to the cecum, identified by appendiceal orifice and ileocecal valve. The colonoscopy was somewhat difficult due to poor bowel prep. Successful completion of the procedure was aided by applying abdominal pressure and lavage. The patient tolerated the procedure well. The quality of the bowel preparation was inadequate. Findings: Hemorrhoids were found on perianal exam. A few small-mouthed diverticula were found in the sigmoid colon and descending colon. A 2 mm polyp was found in the sigmoid colon. The polyp was flat. The polyp was removed with a jumbo cold forceps. Resection and retrieval were complete. Estimated blood loss was minimal. The retroflexed view of the distal rectum and anal verge was normal and showed no anal or rectal abnormalities. Impression: - Preparation of the colon was inadequate. - Hemorrhoids found on perianal exam. - Diverticulosis in the sigmoid colon and in the descending colon. - One 2 mm polyp in the sigmoid colon, removed with a jumbo cold forceps. Resected and retrieved. - The distal rectum and anal verge are normal on retroflexion view. Recommendation: - Discharge patient to home (ambulatory). - High fiber diet. - Repeat colonoscopy in 1 year because the bowel preparation was suboptimal. Procedure Code(s): --- Professional --- 66385, Colonoscopy, flexible; with biopsy, single or multiple Diagnosis Code(s): --- Professional --- Z12.11, Encounter for screening for malignant neoplasm of colon K64.9, Unspecified hemorrhoids K63.5, Polyp of colon K57.30, Diverticulosis of large intestine without perforation or abscess without bleeding CPT copyright 2019 [employer]. All rights reserved. The codes documented in this report are preliminary and upon garage supervisor review may be revised to meet current compliance requirements. Elie Shankar MD Elie Shankar MD 01/03/2021 10:36:53 AM Electronically signed by Elie Shankar MD Number of Addenda: 0 Note Initiated On: 01/03/2021 9:43 AM Estimated Blood Loss: Estimated blood loss was minimal.
[2021-01-03 11:07] VITALS: BP 126/64
== END 2021-01-03 11:10 | disposition home or self-care (01) ==
LOC: M OPP 09:03
PROVIDERS: ATTEND Surgery
DX: Z12.11 Encounter for screening for malignant neoplasm of colon (principal); D12.5 Benign neoplasm of sigmoid colon; K57.30 Diverticulosis of large intestine without perforation or abscess without bleeding; K64.8 Other hemorrhoids; R12 Heartburn; K21.9 Gastro-esophageal reflux disease without esophagitis; Z79.84 Long term (current) use of oral hypoglycemic drugs; Z79.899 Other long term (current) drug therapy; Z88.5 Allergy status to narcotic agent; Z88.8 Allergy status to other drugs, medicaments and biological substances
CPT/HCPCS: 43235; 45380; 88305; J3010

== ENCOUNTER 2021-11-02 16:32 | Emergency (ER) | payer OTHER ==
[~2021-11-02] VITALS: Ht 149.9 cm; Wt 53.0 kg
[~2021-11-02 16:32] MED LIST changes: +K-TA10TA2 PO; -NS 1,000 ML IV ONE
[2021-11-02 16:33] VITALS: BP 142/65
[2021-11-02] MEDS ORDERED: CYCL-707 PO (20:58)
== END 2021-11-02 21:11 | disposition home or self-care (01) ==
LOC: M ED 16:32
DX: S13.4XXA Sprain of ligaments of cervical spine, initial encounter (principal); S66.811A Strain of other specified muscles, fascia and tendons at wrist and hand level, right hand, initial encounter; V49.49XA Driver injured in collision with other motor vehicles in traffic accident, initial encounter; Y92.410 Unspecified street and highway as the place of occurrence of the external cause; E11.9 Type 2 diabetes mellitus without complications; I50.9 Heart failure, unspecified; I10 Essential (primary) hypertension; E78.5 Hyperlipidemia, unspecified; F41.9 Anxiety disorder, unspecified; Z88.1 Allergy status to other antibiotic agents; Z88.5 Allergy status to narcotic agent; Z79.899 Other long term (current) drug therapy; Z79.84 Long term (current) use of oral hypoglycemic drugs

== ENCOUNTER → 2022-03-01 | Outpatient (REF) | payer OTHER ==
[~2022-03-01] MED LIST changes: +CYCL-707 PO
[2022-03-01 13:58] LABS: BASO # 0.1 10^3/uL (0.0-0.2); EOS # 0.1 10^3/uL (0.0-0.5); EOS % 2.5 % (0.0-3.0); HEMATOCRIT 41.2 % (36.0-47.0); HEMOGLOBIN 13.4 g/dl (12.0-15.5); LYMPH # 1.7 10^3/uL (1.5-5.0); LYMPH % 34.3 % (24.0-44.0); MEAN CORPUSCULAR HEMOGLOBIN 30.1 pg (27.0-33.0); MEAN CORPUSCULAR HGB CONC 32.5 g/dl (32.0-36.5); MEAN CORPUSCULAR VOLUME 92.6 fl (80.0-96.0); MONO # 0.4 10^3/uL (0.0-0.8); MONO % 7.4 % (2.0-8.0); NEUTROPHILS # 2.7 10^3/uL (1.5-8.5); NEUTROPHILS % 54.4 % (36.0-66.0); PLATELET COUNT, AUTOMATED 320 10^3/uL (150-450); RED BLOOD COUNT 4.45 10^6/uL (4.00-5.40); WHITE BLOOD COUNT 4.9 10^3/uL (4.0-10.0)
[2022-03-01 14:10] LABS: TOTAL 25(OH) VITAMIN D 40.1 NG/ML (20.0-100.0)
[2022-03-01 14:14] LABS: ALBUMIN 4.5 G/DL (3.2-5.2); ALKALINE PHOSPHATASE 67 U/L (46-116); ALT/SGPT 15 U/L (7.0-40); AST/SGOT 15 U/L (<34); BILIRUBIN,TOTAL 0.6 MG/DL (0.3-1.2); BLOOD UREA NITROGEN 21 MG/DL (9-23); CALCIUM LEVEL 9.7 MG/DL (8.3-10.6); CARBON DIOXIDE LEVEL 29 MMOL/L (20-31); CHLORIDE LEVEL 101 MMOL/L (98-107); CHOLESTEROL LEVEL 187 MG/DL (<200); CREATININE FOR GFR 0.77 MG/DL (0.55-1.30); GLOMERULAR FILTRATION RATE > 60.0 (>45); GLUCOSE, FASTING 127 MG/DL (74-106); HDL CHOLESTEROL 53.3 MG/DL (>40); LDL CHOLESTEROL 118.7 MG/DL (<100); NON-HDL-C 134 MG/DL; POTASSIUM SERUM 4.5 MMOL/L (3.5-5.1); SODIUM LEVEL 139 MMOL/L (136-145); TOTAL PROTEIN 7.2 G/DL (5.7-8.2); TRIGLYCERIDES LEVEL 75 MG/DL (<150)
[2022-03-01 14:15] LABS: HEMOGLOBIN A1c 6.4 % (4.0-6.0)
== END ==
LOC: M LAB REF 12:22
PROVIDERS: ATTEND Nurse Practitioner Family
DX: Z79.899 Other long term (current) drug therapy (principal); Z68.23 Body mass index [BMI] 23.0-23.9, adult

== ENCOUNTER → 2022-07-30 | Outpatient (REF) | payer OTHER ==
[2022-07-30 14:30] LABS: CHOLESTEROL RISK RATIO 3.39 (<5); HDL CHOLESTEROL 56.2 MG/DL (>40); LDL CHOLESTEROL 114.6 MG/DL (<100); NON-HDL-C 134.8 MG/DL
[2022-07-30 15:30] LABS: HEMOGLOBIN A1c 6.8 % (4.0-6.0)
== END ==
LOC: M LAB REF 12:25
PROVIDERS: ATTEND Nurse Practitioner Family
DX: E78.5 Hyperlipidemia, unspecified (principal); E11.21 Type 2 diabetes mellitus with diabetic nephropathy

== ENCOUNTER → 2022-08-06 | Outpatient (REF) | payer OTHER ==
[2022-08-06 18:34] LABS: RHEUMATOID FACTOR QUANT < 3.5 IU/ML (<14)
[2022-08-06 18:35] LABS: C REACTIVE PROTEIN QUANTITATIV < 0.40 MG/DL (<1.0)
[2022-08-06 18:36] LABS: ALBUMIN 4.3 G/DL (3.2-5.2); ALKALINE PHOSPHATASE 64 U/L (46-116); ALT/SGPT 14 U/L (7.0-40); AST/SGOT 13 U/L (<34); BILIRUBIN,TOTAL 0.7 MG/DL (0.3-1.2); BLOOD UREA NITROGEN 15 MG/DL (9-23); CALCIUM LEVEL 9.6 MG/DL (8.3-10.6); CARBON DIOXIDE LEVEL 28 MMOL/L (20-31); CHLORIDE LEVEL 104 MMOL/L (98-107); CREATININE FOR GFR 0.72 MG/DL (0.55-1.30); GLOMERULAR FILTRATION RATE > 60.0 (>45); GLUCOSE, FASTING 125 MG/DL (74-106); MAGNESIUM LEVEL 1.8 MG/DL (1.8-2.4); POTASSIUM SERUM 4.6 MMOL/L (3.5-5.1); SODIUM LEVEL 138 MMOL/L (136-145)
[2022-08-08 20:12] LABS: ANA (HEP2) Negative (.)
== END ==
LOC: M LAB REF 16:32
PROVIDERS: ATTEND Nurse Practitioner Family
DX: M25.50 Pain in unspecified joint (principal); E87.6 Hypokalemia

== ENCOUNTER → 2022-08-17 | Outpatient (CLI) | payer OTHER | LOC: M WHC 14:44 | PROVIDERS: ATTEND Nurse Practitioner Family | DX: Z12.31 Encounter for screening mammogram for malignant neoplasm of breast (principal) ==

== ENCOUNTER → 2022-09-06 | Outpatient (CLI) | payer OTHER | LOC: M WHC 12:17 | PROVIDERS: ATTEND Nurse Practitioner Family | DX: N18.2 Chronic kidney disease, stage 2 (mild) (principal); Z87.442 Personal history of urinary calculi; E11.22 Type 2 diabetes mellitus with diabetic chronic kidney disease; N20.0 Calculus of kidney ==

== ENCOUNTER → 2022-10-16 | Outpatient (REF) | payer OTHER ==
[~2022-10-16] MED LIST changes: -K-TA10TA PO; -K-TA10TA2 PO; +POTA-164 PO; +POTA-165 PO
[2022-10-16 18:50] LABS: BLOOD UREA NITROGEN 14 MG/DL (9-23); CALCIUM LEVEL 9.6 MG/DL (8.3-10.6); CARBON DIOXIDE LEVEL 31 MMOL/L (20-31); CHLORIDE LEVEL 104 MMOL/L (98-107); CREATININE FOR GFR 0.67 MG/DL (0.55-1.30); GLOMERULAR FILTRATION RATE > 60.0 (>45); GLUCOSE, FASTING 98 MG/DL (74-106); POTASSIUM SERUM 4.5 MMOL/L (3.5-5.1); SODIUM LEVEL 141 MMOL/L (136-145)
== END ==
LOC: M LAB REF 17:15
PROVIDERS: ATTEND Nurse Practitioner Family
DX: E87.6 Hypokalemia (principal)

== ENCOUNTER → 2022-11-07 | Outpatient (REF) | payer OTHER | LOC: M SFHCWAGY 17:17 | PROVIDERS: ATTEND Nurse Practitioner Family | DX: Z12.4 Encounter for screening for malignant neoplasm of cervix (principal) ==

== ENCOUNTER → 2022-12-11 | Outpatient (REF) | payer OTHER ==
[2022-12-11 12:45] LABS: HEMOGLOBIN A1c 6.8 % (4.0-6.0)
[2022-12-11 12:51] LABS: ALBUMIN 4.1 G/DL (3.2-5.2); ALKALINE PHOSPHATASE 59 U/L (46-116); ALT/SGPT 31 U/L (7.0-40); AST/SGOT < 8 U/L (<34); BILIRUBIN,TOTAL 0.7 MG/DL (0.3-1.2); BLOOD UREA NITROGEN 17 MG/DL (9-23); CALCIUM LEVEL 9.6 MG/DL (8.3-10.6); CARBON DIOXIDE LEVEL 31 MMOL/L (20-31); CHLORIDE LEVEL 101 MMOL/L (98-107); CHOLESTEROL LEVEL 186 MG/DL (<200); CHOLESTEROL RISK RATIO 3.75 (<5); CREATININE FOR GFR 0.79 MG/DL (0.55-1.30); GLOMERULAR FILTRATION RATE > 60.0 (>45); GLUCOSE, FASTING 135 MG/DL (74-106); HDL CHOLESTEROL 49.5 MG/DL (>40); LDL CHOLESTEROL 103.9 MG/DL (<100); NON-HDL-C 136.5 MG/DL; POTASSIUM SERUM 4.4 MMOL/L (3.5-5.1); SODIUM LEVEL 139 MMOL/L (136-145); TRIGLYCERIDES LEVEL 163 MG/DL (<150)
== END ==
LOC: M LAB REF 11:45
PROVIDERS: ATTEND Nurse Practitioner Family
DX: E11.21 Type 2 diabetes mellitus with diabetic nephropathy (principal); E78.5 Hyperlipidemia, unspecified

== ENCOUNTER → 2022-12-19 | Outpatient (REF) | payer OTHER | LOC: M SFHCWAGY 13:06 | PROVIDERS: ATTEND Nurse Practitioner Family | DX: R39.15 Urgency of urination (principal) ==

== ENCOUNTER → 2023-04-09 | Outpatient (CLI) | payer MEDICARE ==
[~2023-04-09] MED LIST changes: +POTA-151 PO
[2023-04-09 11:23] LABS: HEMATOCRIT 40.8 % (36.0-47.0); HEMOGLOBIN 13.5 g/dl (12.0-15.5); MEAN CORPUSCULAR HEMOGLOBIN 30.8 pg (27.0-33.0); MEAN CORPUSCULAR HGB CONC 33.1 g/dl (32.0-36.5); MEAN CORPUSCULAR VOLUME 92.9 fl (80.0-96.0); PLATELET COUNT, AUTOMATED 312 10^3/uL (150-450); RED BLOOD COUNT 4.39 10^6/uL (4.00-5.40); WHITE BLOOD COUNT 4.8 10^3/uL (4.0-10.0)
[2023-04-09 11:45] LABS: BLOOD UREA NITROGEN 19 MG/DL (9-23); CALCIUM LEVEL 9.7 MG/DL (8.3-10.6); CARBON DIOXIDE LEVEL 31 MMOL/L (20-31); CHLORIDE LEVEL 104 MMOL/L (98-107); CREATININE FOR GFR 0.67 MG/DL (0.55-1.30); GLOMERULAR FILTRATION RATE > 60.0 (>45); GLUCOSE, FASTING 134 MG/DL (74-106); POTASSIUM SERUM 3.9 MMOL/L (3.5-5.1); SODIUM LEVEL 141 MMOL/L (136-145)
[2023-04-09 11:47] LABS: APPEARANCE, URINE CLEAR (CLEAR); BACTERIA, URINE AUTO 1+ (NEGATIVE); BILIRUBIN, URINE AUTO NEGATIVE (NEGATIVE); BLOOD, URINE BLOOD NEGATIVE (NEGATIVE); COLOR, URINE STRAW (YELLOW); GLUCOSE, URINE (UA) AUTO NEGATIVE (NEGATIVE); KETONE, URINE AUTO NEGATIVE (NEGATIVE); LEUKOCYTE ESTERASE, URINE AUTO 3+ (NEGATIVE); NITRITE, URINE AUTO NEGATIVE (NEGATIVE); PROTEIN, URINE AUTO NEGATIVE (NEGATIVE); RBC, URINE AUTO 1 /HPF (0-3); SPECIFIC GRAVITY URINE AUTO 1.005 (1.002-1.035); SQUAMOUS EPITHELIAL CELL UR AU 0 /HPF (0-6); UROBILINOGEN, URINE AUTO 0.2 mg/dL (0.0-2.0); WBC, URINE AUTO 9 /HPF (0-3)
== END ==
LOC: M RAD 09:45
PROVIDERS: ATTEND Nurse Practitioner Family
DX: Z01.818 Encounter for other preprocedural examination (principal); Z79.899 Other long term (current) drug therapy

== ENCOUNTER → 2023-04-12 | Outpatient (REF) | payer MEDICARE ==
[2023-04-12 13:19] LABS: BASO % 0.9 % (0.0-1.0); EOS # 0.1 10^3/uL (0.0-0.5); EOS % 2.5 % (0.0-3.0); HEMATOCRIT 40.7 % (36.0-47.0); HEMOGLOBIN 13.5 g/dl (12.0-15.5); LYMPH # 1.7 10^3/uL (1.5-5.0); LYMPH % 38.7 % (24.0-44.0); MEAN CORPUSCULAR HEMOGLOBIN 30.8 pg (27.0-33.0); MEAN CORPUSCULAR HGB CONC 33.2 g/dl (32.0-36.5); MEAN CORPUSCULAR VOLUME 92.7 fl (80.0-96.0); MONO # 0.3 10^3/uL (0.0-0.8); MONO % 6.2 % (2.0-8.0); NEUTROPHILS # 2.3 10^3/uL (1.5-8.5); NEUTROPHILS % 51.5 % (36.0-66.0); PLATELET COUNT, AUTOMATED 301 10^3/uL (150-450); RED BLOOD COUNT 4.39 10^6/uL (4.00-5.40); WHITE BLOOD COUNT 4.4 10^3/uL (4.0-10.0)
[2023-04-12 13:23] LABS: ALBUMIN 4.2 G/DL (3.2-5.2); ALKALINE PHOSPHATASE 62 U/L (46-116); ALT/SGPT 17 U/L (7.0-40); AST/SGOT 10 U/L (<34); BILIRUBIN,TOTAL 0.6 MG/DL (0.3-1.2); BLOOD UREA NITROGEN 22 MG/DL (9-23); CALCIUM LEVEL 9.5 MG/DL (8.3-10.6); CARBON DIOXIDE LEVEL 32 MMOL/L (20-31); CHLORIDE LEVEL 104 MMOL/L (98-107); CHOLESTEROL LEVEL 172 MG/DL (<200); CHOLESTEROL RISK RATIO 3.45 (<5); CREATININE FOR GFR 0.71 MG/DL (0.55-1.30); GLOMERULAR FILTRATION RATE > 60.0 (>45); GLUCOSE, FASTING 149 MG/DL (74-106); HDL CHOLESTEROL 49.8 MG/DL (>40); NON-HDL-C 122.2 MG/DL; POTASSIUM SERUM 4.1 MMOL/L (3.5-5.1); SODIUM LEVEL 141 MMOL/L (136-145); TOTAL PROTEIN 6.9 G/DL (5.7-8.2); TRIGLYCERIDES LEVEL 86 MG/DL (<150)
[2023-04-12 13:25] LABS: THYROID STIMULATING HORMONE 3.689 uIU/ML (0.55-4.78)
[2023-04-12 13:40] LABS: HEMOGLOBIN A1c 6.9 % (4.0-6.0)
== END ==
LOC: M LAB REF 12:25
PROVIDERS: ATTEND Nurse Practitioner Family
DX: Z13.228 Encounter for screening for other metabolic disorders (principal); Z79.899 Other long term (current) drug therapy

== ENCOUNTER 2023-04-19 09:06 | Day surgery (SDC) | payer MEDICARE ==
[~2023-04-19] VITALS: Ht 152.4 cm; Wt 53.4 kg
[~2023-04-19 09:06] MED LIST changes: +CIPROFLOXACIN 400 MG in IV 1 EA IV ONE
[2023-04-19] MEDS ORDERED: GNP250TA9 PO (09:42)
[2023-04-19] MEDS ORDERED: LR 1,000 ML IV SCH (09:45)
[2023-04-19] MEDS ORDERED: ONDANSETRON 4MG 2ML VIAL As Ordered ONE (10:11)
[2023-04-19] MEDS ORDERED: LIDOCAINE 2% 100MG/5ML SDV (FOR ANES.) As Ordered ONE (10:11)
[2023-04-19] MEDS ORDERED: propofoL 200 MG/20 ML VIAL As Ordered ONE (10:11)
[2023-04-19] MEDS ORDERED: fentaNYL 100 MCG/2 ML INJECTION As Ordered ONE (10:12)
[2023-04-19] MEDS ORDERED: MIDAZOLAM INJ 2MG/2ML VIAL As Ordered ONE (10:13)
[2023-04-19] MEDS ORDERED: ISOVUE-M 300 61% 15ML VIAL As Ordered ONE (10:57)
[2023-04-19] MEDS ORDERED: ACETAMINOPHEN 1000MG 100ML IV BAG As Ordered ONE (11:41)
[2023-04-19] MEDS ORDERED: oxyCODONE 5MG TAB PO PRN (12:55)
[2023-04-19] MEDS ORDERED: fentaNYL 100 MCG/2 ML INJECTION IV PRN (12:55)
[2023-04-19] MEDS ORDERED: ONDANSETRON 4MG 2ML VIAL IV PRN (12:55)
[2023-04-19] MEDS ORDERED: MORPHINE 2 MG/ML 1ML VIAL IV PRN (12:55)
[2023-04-19] MEDS ORDERED: OXYB5TAB11 PO (13:36)
[2023-04-19] MEDS ORDERED: CIPR-249 PO (13:36)
[2023-04-19] MEDS ORDERED: oxyBUTYnin 5 MG TAB PO PRN (13:40)
[2023-04-19] MEDS ORDERED: PERCOCET 5MG/325MG TAB PO PRN (13:45)
[2023-04-19 14:31] VITALS: BP 138/77; TEMP 97.9; O2SAT 98
[2023-04-26 15:08] LABS: Ca Ox Monohydrate 30 % (.); Size 4x3 mm (.)
== END 2023-04-19 14:50 | disposition home or self-care (01) ==
LOC: M SDC 09:06
PROVIDERS: ATTEND Urology
DX: N20.0 Calculus of kidney (principal); E11.9 Type 2 diabetes mellitus without complications; I10 Essential (primary) hypertension; E78.00 Pure hypercholesterolemia, unspecified; K21.9 Gastro-esophageal reflux disease without esophagitis; Z88.1 Allergy status to other antibiotic agents; Z88.5 Allergy status to narcotic agent; Z79.899 Other long term (current) drug therapy; Z79.84 Long term (current) use of oral hypoglycemic drugs; Z87.442 Personal history of urinary calculi
CPT/HCPCS: 52332; 52352; 52356; 74420; 82365; C1769; C1894; C2617; J0131; J1100; J2250; J2405; J3010; Q9967

== ENCOUNTER → 2023-06-10 | Outpatient (CLI) | payer OTHER, MEDICARE ==
[~2023-06-10] MED LIST changes: +CIPR-249 PO; -CIPROFLOXACIN 400 MG in IV 1 EA IV ONE; +GNP250TA9 PO; +OXYB5TAB14 PO
[2023-06-10 14:31] LABS: PLATELET COUNT, AUTOMATED 303 10^3/uL (150-450)
[2023-06-10 14:43] LABS: INR 1.07; PARTIAL THROMBOPLASTIN TIME 30.2 SECONDS (24.8-34.2); PROTHROMBIN TIME 13.6 SECONDS (12.5-14.5)
== END ==
LOC: M LAB 13:56
PROVIDERS: ATTEND Physician Assistant
DX: Z01.818 Encounter for other preprocedural examination (principal)

== ENCOUNTER → 2023-07-16 | Outpatient (REF) | payer OTHER, MEDICARE, BC ==
[2023-07-16 15:07] LABS: ALBUMIN 3.9 G/DL (3.2-5.2); ALKALINE PHOSPHATASE 74 U/L (46-116); ALT/SGPT 14 U/L (7.0-40); AST/SGOT 12 U/L (<34); BILIRUBIN,TOTAL 0.6 MG/DL (0.3-1.2); BLOOD UREA NITROGEN 25 MG/DL (9-23); CALCIUM LEVEL 9.7 MG/DL (8.3-10.6); CARBON DIOXIDE LEVEL 34 MMOL/L (20-31); CHLORIDE LEVEL 102 MMOL/L (98-107); CREATININE FOR GFR 0.74 MG/DL (0.55-1.30); GLOMERULAR FILTRATION RATE > 60.0 (>45); GLUCOSE, FASTING 152 MG/DL (74-106); POTASSIUM SERUM 3.8 MMOL/L (3.5-5.1); SODIUM LEVEL 138 MMOL/L (136-145); TOTAL PROTEIN 6.7 G/DL (5.7-8.2)
[2023-07-16 15:42] LABS: HEMOGLOBIN A1c 7.1 % (4.0-6.0)
== END ==
LOC: M LAB REF 12:05
PROVIDERS: ATTEND Nurse Practitioner Family
DX: E11.21 Type 2 diabetes mellitus with diabetic nephropathy (principal)

== ENCOUNTER 2023-10-08 11:53 | Emergency (ER) | payer MEDICARE ==
[~2023-10-08] VITALS: Ht 152.4 cm; Wt 53.1 kg
[2023-10-08 13:33] LABS: BASO # 0.1 10^3/uL (0.0-0.2); BASO % 0.9 % (0.0-1.0); EOS # 0.1 10^3/uL (0.0-0.5); HEMATOCRIT 40.8 % (36.0-47.0); HEMOGLOBIN 13.8 g/dl (12.0-15.5); LYMPH # 2.3 10^3/uL (1.5-5.0); LYMPH % 40.8 % (24.0-44.0); MEAN CORPUSCULAR HEMOGLOBIN 30.7 pg (27.0-33.0); MEAN CORPUSCULAR HGB CONC 33.8 g/dl (32.0-36.5); MEAN CORPUSCULAR VOLUME 90.9 fl (80.0-96.0); MONO # 0.3 10^3/uL (0.0-0.8); MONO % 5.8 % (2.0-8.0); NEUTROPHILS # 2.8 10^3/uL (1.5-8.5); NEUTROPHILS % 50.3 % (36.0-66.0); PLATELET COUNT, AUTOMATED 322 10^3/uL (150-450); RED BLOOD COUNT 4.49 10^6/uL (4.00-5.40); WHITE BLOOD COUNT 5.5 10^3/uL (4.0-10.0)
[2023-10-08] MEDS: ONDANSETRON 4MG 2ML VIAL IV ONE (13:50)
[2023-10-08] MEDS: KETOROLAC 30 MG/ML 1ML VIAL IV ONE (13:51)
[2023-10-08] MEDS: MORPHINE 2 MG/ML 1ML VIAL IV ONE (13:51)
[2023-10-08 13:54] LABS: LIPASE 50 U/L (12-53)
[2023-10-08 13:56] LABS: ALBUMIN 4.5 G/DL (3.2-5.2); ALKALINE PHOSPHATASE 77 U/L (46-116); ALT/SGPT 21 U/L (7.0-40); AST/SGOT 11 U/L (<34); BILIRUBIN,DIRECT 0.1 MG/DL (<0.4); BILIRUBIN,TOTAL 0.6 MG/DL (0.3-1.2); BLOOD UREA NITROGEN 14 MG/DL (9-23); CALCIUM LEVEL 10.5 MG/DL (8.3-10.6); CARBON DIOXIDE LEVEL 31 MMOL/L (20-31); CHLORIDE LEVEL 102 MMOL/L (98-107); CREATININE FOR GFR 0.66 MG/DL (0.55-1.30); GLOMERULAR FILTRATION RATE > 60.0 (>45); GLUCOSE, FASTING 126 MG/DL (74-106); POTASSIUM SERUM 3.7 MMOL/L (3.5-5.1); SODIUM LEVEL 141 MMOL/L (136-145); TOTAL PROTEIN 7.5 G/DL (5.7-8.2)
[2023-10-08 14:50] VITALS: BP 133/67; TEMP 96.6; O2SAT 97
[2023-10-08] MEDS ORDERED: IBUP-1022 PO (14:57)
== END 2023-10-08 15:08 | disposition home or self-care (01) ==
LOC: M ED 11:53
DX: M54.9 Dorsalgia, unspecified (principal); N20.0 Calculus of kidney; K59.00 Constipation, unspecified; I11.0 Hypertensive heart disease with heart failure; E11.9 Type 2 diabetes mellitus without complications; Z87.440 Personal history of urinary (tract) infections; Z87.442 Personal history of urinary calculi; Z79.899 Other long term (current) drug therapy; Z88.1 Allergy status to other antibiotic agents; Z88.5 Allergy status to narcotic agent
CPT/HCPCS: 74176; 80048; 80076; 81001; 83690; 85025; 96374; 96375; 99284; J1885; J2405

== ENCOUNTER → 2023-10-31 | Outpatient (CLI) | payer MEDICARE ==
[~2023-10-31] MED LIST changes: +IBUP-1022 PO
== END ==
LOC: M RAD 09:36
PROVIDERS: ATTEND Urology
DX: N20.0 Calculus of kidney (principal)

== ENCOUNTER → 2023-11-12 | Outpatient (REF) | payer MEDICARE ==
[2023-11-14 14:43] LABS: HPV APTIMA Not Detected (Not Detected)
== END ==
LOC: M SFHCWAGY 15:07
PROVIDERS: ATTEND Nurse Practitioner Family
DX: Z12.4 Encounter for screening for malignant neoplasm of cervix (principal)
CPT/HCPCS: 87624; G0123

== ENCOUNTER → 2023-11-12 | Outpatient (CLI) | payer MEDICARE | LOC: M WHC 10:18 | PROVIDERS: ATTEND Nurse Practitioner Family | DX: M81.0 Age-related osteoporosis without current pathological fracture (principal); M85.88 Other specified disorders of bone density and structure, other site; Z13.820 Encounter for screening for osteoporosis ==

== ENCOUNTER → 2023-11-12 | Outpatient (CLI) | payer MEDICARE | LOC: M WHC 10:17 | PROVIDERS: ATTEND Nurse Practitioner Family | DX: Z12.31 Encounter for screening mammogram for malignant neoplasm of breast (principal) ==

== ENCOUNTER → 2023-11-13 | Outpatient (REF) | payer MEDICARE ==
[2023-11-13 13:35] LABS: ALBUMIN 4.4 G/DL (3.2-5.2); ALKALINE PHOSPHATASE 80 U/L (46-116); ALT/SGPT 17 U/L (7.0-40); AST/SGOT 10 U/L (<34); BILIRUBIN,TOTAL 0.7 MG/DL (0.3-1.2); BLOOD UREA NITROGEN 19 MG/DL (9-23); CALCIUM LEVEL 9.6 MG/DL (8.3-10.6); CARBON DIOXIDE LEVEL 30 MMOL/L (20-31); CHLORIDE LEVEL 100 MMOL/L (98-107); CHOLESTEROL LEVEL 196 MG/DL (<200); CHOLESTEROL RISK RATIO 3.98 (<5); CREATININE FOR GFR 0.64 MG/DL (0.55-1.30); GLOMERULAR FILTRATION RATE > 60.0 (>45); GLUCOSE, FASTING 178 MG/DL (74-106); HDL CHOLESTEROL 49.2 MG/DL (>40); LDL CHOLESTEROL 113.8 MG/DL (<100); NON-HDL-C 146.8 MG/DL; POTASSIUM SERUM 3.3 MMOL/L (3.5-5.1); SODIUM LEVEL 135 MMOL/L (136-145); TOTAL PROTEIN 7.3 G/DL (5.7-8.2); TRIGLYCERIDES LEVEL 165 MG/DL (<150)
[2023-11-13 13:47] LABS: HEMOGLOBIN A1c 7.8 % (4.0-6.0)
== END ==
LOC: M LAB REF 12:43
PROVIDERS: ATTEND Nurse Practitioner Family
DX: E11.21 Type 2 diabetes mellitus with diabetic nephropathy (principal); E78.5 Hyperlipidemia, unspecified

== ENCOUNTER → 2023-12-10 | Outpatient (REF) | payer MEDICARE ==
[2023-12-11 13:47] LABS: BASO # 0.1 10^3/uL (0.0-0.2); BASO % 1.4 % (0.0-1.0); EOS # 0.2 10^3/uL (0.0-0.5); EOS % 2.6 % (0.0-3.0); HEMATOCRIT 40.4 % (36.0-47.0); HEMOGLOBIN 13.6 g/dl (12.0-15.5); LYMPH # 1.9 10^3/uL (1.5-5.0); LYMPH % 33.1 % (24.0-44.0); MEAN CORPUSCULAR HEMOGLOBIN 30.8 pg (27.0-33.0); MEAN CORPUSCULAR HGB CONC 33.7 g/dl (32.0-36.5); MEAN CORPUSCULAR VOLUME 91.4 fl (80.0-96.0); MONO # 0.4 10^3/uL (0.0-0.8); MONO % 6.8 % (2.0-8.0); NEUTROPHILS # 3.2 10^3/uL (1.5-8.5); NEUTROPHILS % 55.6 % (36.0-66.0); PLATELET COUNT, AUTOMATED 337 10^3/uL (150-450); RED BLOOD COUNT 4.42 10^6/uL (4.00-5.40); WHITE BLOOD COUNT 5.8 10^3/uL (4.0-10.0)
[2023-12-11 13:50] LABS: ALBUMIN 4.2 G/DL (3.2-5.2); ALKALINE PHOSPHATASE 79 U/L (46-116); ALT/SGPT 11 U/L (7.0-40); AST/SGOT < 8 U/L (<34); BILIRUBIN,TOTAL 0.5 MG/DL (0.3-1.2); BLOOD UREA NITROGEN 20 MG/DL (9-23); CALCIUM LEVEL 10.3 MG/DL (8.3-10.6); CARBON DIOXIDE LEVEL 30 MMOL/L (20-31); CHLORIDE LEVEL 104 MMOL/L (98-107); CHOLESTEROL LEVEL 217 MG/DL (<200); CHOLESTEROL RISK RATIO 4.28 (<5); CREATININE FOR GFR 0.84 MG/DL (0.55-1.30); GLOMERULAR FILTRATION RATE > 60.0 (>45); GLUCOSE, FASTING 165 MG/DL (74-106); HDL CHOLESTEROL 50.7 MG/DL (>40); LDL CHOLESTEROL 107.3 MG/DL (<100); MAGNESIUM LEVEL 1.7 MG/DL (1.8-2.4); NON-HDL-C 166.3 MG/DL; POTASSIUM SERUM 3.8 MMOL/L (3.5-5.1); SODIUM LEVEL 140 MMOL/L (136-145); TOTAL PROTEIN 7.2 G/DL (5.7-8.2); TRIGLYCERIDES LEVEL 295 MG/DL (<150)
[2023-12-11 13:59] LABS: HEMOGLOBIN A1c 7.8 % (4.0-6.0)
[2023-12-12 12:58] LABS: RUBEOLA IgG ANTIBODY < 13.50 AU/mL (>16.49)
== END ==
LOC: M LAB REF 12:56
PROVIDERS: ATTEND Nurse Practitioner Family
DX: E11.21 Type 2 diabetes mellitus with diabetic nephropathy (principal); E78.5 Hyperlipidemia, unspecified; I10 Essential (primary) hypertension; Z78.9 Other specified health status

== ENCOUNTER → 2024-02-17 | Outpatient (REF) | payer MEDICARE ==
[2024-02-17 18:51] LABS: HEMOGLOBIN A1c 6.2 % (4.0-6.0)
[2024-02-17 18:56] LABS: ALKALINE PHOSPHATASE 79 U/L (35-104); ALT/SGPT < 9 U/L (7.0-40); AST/SGOT < 8 U/L (<34); BILIRUBIN,TOTAL 0.5 MG/DL (0.3-1.2); BLOOD UREA NITROGEN 14 MG/DL (9-23); CALCIUM LEVEL 10.1 MG/DL (8.3-10.6); CARBON DIOXIDE LEVEL 28 MMOL/L (20-31); CHLORIDE LEVEL 102 MMOL/L (98-107); CHOLESTEROL LEVEL 191 MG/DL (<200); CHOLESTEROL RISK RATIO 4.48 (<5); CREATININE FOR GFR 0.71 MG/DL (0.55-1.30); GLOMERULAR FILTRATION RATE > 60.0 (>45); GLUCOSE, FASTING 77 MG/DL (74-106); HDL CHOLESTEROL 42.6 MG/DL (>40); LDL CHOLESTEROL 121.4 MG/DL (<100); NON-HDL-C 148.4 MG/DL; SODIUM LEVEL 140 MMOL/L (136-145); TOTAL PROTEIN 7.2 G/DL (5.7-8.2); TRIGLYCERIDES LEVEL 135 MG/DL (<150)
== END ==
LOC: M LAB REF 16:34
PROVIDERS: ATTEND Nurse Practitioner Family
DX: E78.5 Hyperlipidemia, unspecified (principal); E11.21 Type 2 diabetes mellitus with diabetic nephropathy

== ENCOUNTER → 2024-04-15 | Outpatient (REF) | payer MEDICARE ==
[2024-04-15 17:34] LABS: ALKALINE PHOSPHATASE 55 U/L (35-104); ALT/SGPT 24 U/L (7.0-40); AST/SGOT < 8 U/L (<34); BILIRUBIN,TOTAL 0.6 MG/DL (0.3-1.2); BLOOD UREA NITROGEN 22 MG/DL (9-23); CALCIUM LEVEL 10.4 MG/DL (8.3-10.6); CARBON DIOXIDE LEVEL 31 MMOL/L (20-31); CHLORIDE LEVEL 99 MMOL/L (98-107); CHOLESTEROL LEVEL 165 MG/DL (<200); CHOLESTEROL RISK RATIO 3.94 (<5); CREATININE FOR GFR 0.71 MG/DL (0.55-1.30); GLOMERULAR FILTRATION RATE > 60.0 (>45); GLUCOSE, FASTING 261 MG/DL (74-106); HDL CHOLESTEROL 41.8 MG/DL (>40); LDL CHOLESTEROL 94.4 MG/DL (<100); NON-HDL-C 123.2 MG/DL; POTASSIUM SERUM 4.9 MMOL/L (3.5-5.1); SODIUM LEVEL 140 MMOL/L (136-145); TOTAL PROTEIN 6.7 G/DL (5.7-8.2); TRIGLYCERIDES LEVEL 144 MG/DL (<150)
== END ==
LOC: M LAB REF 16:26
PROVIDERS: ATTEND Nurse Practitioner Family
DX: E11.21 Type 2 diabetes mellitus with diabetic nephropathy (principal); E78.5 Hyperlipidemia, unspecified

== ENCOUNTER 2024-07-31 09:46 | Day surgery (SDC) | payer MEDICARE ==
[~2024-07-31] VITALS: Ht 152.4 cm; Wt 50.1 kg
[~2024-07-31 09:46] MED LIST changes: +LIDOCAINE 2% 100MG/5ML SDV (FOR ANES.) As Ordered ONE; +TRUL10IN SC; +propofoL 200 MG/20 ML VIAL As Ordered ONE
[2024-07-31 11:43] VITALS: TEMP 97.3
[2024-07-31 12:06] VITALS: BP 97/51; O2SAT 99
== END 2024-07-31 12:23 | disposition home or self-care (01) ==
LOC: M OPP 09:46
PROVIDERS: ATTEND Surgery
DX: K57.30 Diverticulosis of large intestine without perforation or abscess without bleeding (principal); K64.8 Other hemorrhoids; Z86.0100 Personal history of colon polyps, unspecified; Z88.5 Allergy status to narcotic agent; Z88.8 Allergy status to other drugs, medicaments and biological substances; Z79.85 Long-term (current) use of injectable non-insulin antidiabetic drugs; Z79.899 Other long term (current) drug therapy

== ENCOUNTER → 2024-08-19 | Outpatient (CLI) | payer MEDICARE ==
[~2024-08-19] MED LIST changes: -LIDOCAINE 2% 100MG/5ML SDV (FOR ANES.) As Ordered ONE; -propofoL 200 MG/20 ML VIAL As Ordered ONE
== END ==
LOC: M WHC 12:35
PROVIDERS: ATTEND Student in an Organized Health Care Education/Training Program
DX: N18.1 Chronic kidney disease, stage 1 (principal); Z13.89 Encounter for screening for other disorder; N28.1 Cyst of kidney, acquired; E11.21 Type 2 diabetes mellitus with diabetic nephropathy; N20.0 Calculus of kidney

== ENCOUNTER → 2024-10-27 | Outpatient (REF) | payer MEDICARE ==
[2024-10-27 13:43] LABS: APPEARANCE, URINE CLEAR (CLEAR); BACTERIA, URINE AUTO NEGATIVE (NEGATIVE); BILIRUBIN, URINE AUTO NEGATIVE (NEGATIVE); BLOOD, URINE BLOOD NEGATIVE (NEGATIVE); GLUCOSE, URINE (UA) AUTO NEGATIVE (NEGATIVE); KETONE, URINE AUTO NEGATIVE (NEGATIVE); LEUKOCYTE ESTERASE, URINE AUTO NEGATIVE (NEGATIVE); NITRITE, URINE AUTO NEGATIVE (NEGATIVE); PROTEIN, URINE AUTO NEGATIVE (NEGATIVE); RBC, URINE AUTO 0 /HPF (0-3); SPECIFIC GRAVITY URINE AUTO 1.003 (1.002-1.035); SQUAMOUS EPITHELIAL CELL UR AU 0 /HPF (0-6); UROBILINOGEN, URINE AUTO 0.2 mg/dL (0.0-2.0); WBC, URINE AUTO 0 /HPF (0-3)
== END ==
LOC: M SMT 12:43
PROVIDERS: ATTEND Nurse Practitioner Family
DX: R30.0 Dysuria (principal)

== ENCOUNTER → 2024-10-27 | Outpatient (REF) | payer MEDICARE ==
[2024-10-28 16:12] LABS: BVAB 2 NEGATIVE (NEGATIVE)
[2024-10-28 17:38] LABS: CANDIDA GLABRATA NAA NOT DETECTED (NOT DETECTED); TRICH VAG BY NAA NOT DETECTED (NOT DETECTED)
[2024-10-28 17:52] LABS: CHLAMYDIA TRACHOMATIS NAA NOT DETECTED (NOT DETECTED)
== END ==
LOC: M SFHCWAGY 12:50
PROVIDERS: ATTEND Nurse Practitioner Family
DX: N76.0 Acute vaginitis (principal)

== ENCOUNTER → 2024-10-29 | Outpatient (REF) | payer MEDICARE | LOC: M PLALAB 08:33 | PROVIDERS: ATTEND Nurse Practitioner Family | DX: R30.9 Painful micturition, unspecified (principal) ==

== ENCOUNTER → 2024-11-23 | Outpatient (CLI) | payer MEDICARE ==
[~2024-11-23] MED LIST changes: -IBUP-1022 PO; +IBUP600T42 PO
== END ==
LOC: M PLAIMG 11:33
PROVIDERS: ATTEND Urology
DX: N20.0 Calculus of kidney (principal)